=== PATIENT | male | born 1985 | race Two or more races ===

== ENCOUNTER 2017-01-11 15:22 | Emergency (ER) | payer OTHER ==
[2017-01-11] MEDS ORDERED: LACTATED RINGERS 1,000 ML ONE ×2 (16:00→17:26)
[2017-01-11 16:31] LABS: VENOUS BLOOD GAS BASE EXCESS 6.9 mmol/L (-2.0-2.0); VENOUS BLOOD GAS HCO3 34.5 mmol/L (22.0-27.0)
[2017-01-11 16:36] LABS: ABSOLUTE NEUTROPHIL COUNT 5.7 K/mm3 (1.8-7.7); BASO % 0.4 % (0.2-1.0); EOS # 0.1 (0.0-0.5); EOS % 0.8 % (0.9-2.9); HEMATOCRIT 35.9 % (32.0-52.0); HEMOGLOBIN 11.6 gm/l (14.0-18.0); IMM NEUT% 0.3 % (0-1); LYMPH % 13.8 % (15-45); MEAN CELL VOLUME 87.3 fl (80.0-94.0); MEAN CORPUSCULAR HEMOGLOBIN 28.2 pg (27.0-31.0); MEAN CORPUSCULAR HGB CONC 32.3 g/dl (33.0-37.0); MEAN PLATELET VOLUME 11.1 fl (7.4-10.4); MONO # 0.6 (0.0-0.8); MONO % 8.2 % (4-12); NEUT % 76.5 % (43-75); PLATELET COUNT 264 K/mm3 (130-400); RED CELL DISTRIBUTION WIDTH 12.4 % (11.5-14.5)
[2017-01-11 16:52] LABS: ALB/GLOB RATIO 0.8 (>1.0); ALBUMIN 3.2 gm/dL (3.5-5.7); CALCIUM 9.2 mg/dL (8.6-10.3); MAGNESIUM 1.8 mg/dL (1.9-2.7)
--- NOTE | 2017-01-11 16:53 | RAD ---
Name: SAMMI GRIFFITHS Exam: Two-view chest Comparison: None Clinical history: Nausea and vomiting. Findings: 2 views of the chest are submitted. The heart mediastinum and hilar structures are within normal limits. There is no failure, infiltrate, pleural effusion or pneumothorax. Regional skeleton is within normal limits. Impression: No acute cardiopulmonary process
[2017-01-11 18:30] LABS: SPECIFIC GRAVITY 1.015 (1.001-1.030); URINE BILIRUBIN NEGATIVE (NEGATIVE); URINE BLOOD TRACE (NEGATIVE); URINE GLUCOSE (UA) 3+ (NEGATIVE); URINE LEUKOCYTE ESTERASE 2+ (NEGATIVE); URINE NITRITE NEGATIVE (NEGATIVE); URINE PROTEIN NEGATIVE (NEGATIVE); URINE UROBILINOGEN NORMAL (0-1 mg/dl)
[2017-01-11 18:34] LABS: URINE APPEARANCE CLEAR; URINE COLOR YELLOW
[2017-01-11 18:37] LABS: URINE BACTERIA 2+; URINE EPITHELIAL CELLS 0-1 /hpf; URINE RBC 0-1 /hpf; URINE WBC 40-50 /hpf
[2017-01-11 18:43] LABS: AMPHETAMINES/METHAMPHETAMINES NEGATIVE (NEGATIVE); COCAINE NEGATIVE (NEGATIVE); MARIJUANA NEGATIVE (NEGATIVE); METHADONE NEGATIVE (NEGATIVE); OPIATES NEGATIVE (NEGATIVE); TRICYCLIC ANTIDEPRESSANTS NEGATIVE (NEGATIVE)
[2017-01-11] MEDS ORDERED: CEPHALEXIN 500 MG CAPSULE ONE (19:15)
[2017-01-13 12:41] LABS: CHLAMYDIA BD Negative (Negative); N.GONORRHOEAE BD Negative (Negative); SOURCE Urine (())
== END 2017-01-11 19:41 | disposition home or self-care (01) ==
LOC: ED 15:22
DX: E11.65 Type 2 diabetes mellitus with hyperglycemia (principal); N39.0 Urinary tract infection, site not specified; Z79.4 Long term (current) use of insulin
CPT/HCPCS: 83690; 87491; 87591; 82803; 85025; 87086; 80305; 80053; 83735; 81001; 71020; 99284 ×2; 96360; 96361 ×2; 82962; 93005; A9270; J7120 ×2

== ENCOUNTER 2017-01-24 14:57 | Inpatient (IN) | payer OTHER ==
[2017-01-24] MEDS ORDERED: IOPAMIDOL 370 (76%) 100 ML VIAL IV ONE (14:58)
[2017-01-24] MEDS ORDERED: SODIUM CHLORIDE 0.9% 2,000 ML ONE (16:58)
[2017-01-24] MEDS ORDERED: INSULIN REGULAR HUMAN (DOSE) 100 UNITS/1 ML ONE (16:58)
[2017-01-24] MEDS ORDERED: INSULIN REGULAR HUMAN (DOSE) 100 UNITS in SODIUM CHLORIDE 0.9% 99 ML IV PRN (16:59)
[2017-01-24 17:20] LABS: VENOUS BLOOD GAS BASE EXCESS 1.6 mmol/L (-2.0-2.0); VENOUS BLOOD GAS HCO3 28.5 mmol/L (22.0-27.0)
[2017-01-24 17:47] LABS: URINE BILIRUBIN NEGATIVE (NEGATIVE); URINE BLOOD 2+ (NEGATIVE); URINE GLUCOSE (UA) 3+ (NEGATIVE); URINE LEUKOCYTE ESTERASE 2+ (NEGATIVE); URINE NITRITE NEGATIVE (NEGATIVE); URINE PROTEIN TRACE (NEGATIVE); URINE UROBILINOGEN NORMAL (0-1 mg/dl)
[2017-01-24 17:48] LABS: ABSOLUTE NEUTROPHIL COUNT 7.4 K/mm3 (1.8-7.7); BASO % 0.2 % (0.2-1.0); EOS # 0.1 (0.0-0.5); EOS % 0.6 % (0.9-2.9); HEMATOCRIT 36.4 % (32.0-52.0); HEMOGLOBIN 11.9 gm/l (14.0-18.0); IMM NEUT% 0.2 % (0-1); LYMPH # 1.3 (1.0-4.8); LYMPH % 13.9 % (15-45); MEAN CELL VOLUME 86.9 fl (80.0-94.0); MEAN CORPUSCULAR HEMOGLOBIN 28.4 pg (27.0-31.0); MEAN CORPUSCULAR HGB CONC 32.7 g/dl (33.0-37.0); MEAN PLATELET VOLUME 11.3 fl (7.4-10.4); MONO # 0.7 (0.0-0.8); MONO % 7.2 % (4-12); NEUT % 77.9 % (43-75); PLATELET COUNT 288 K/mm3 (130-400); RED CELL DISTRIBUTION WIDTH 12.3 % (11.5-14.5)
[2017-01-24 17:51] LABS: URINE APPEARANCE TURBID; URINE COLOR YELLOW
[2017-01-24 17:59] LABS: ALB/GLOB RATIO 0.7 (>1.0); ALBUMIN 3.1 gm/dL (3.5-5.7); CALCIUM 8.9 mg/dL (8.6-10.3)
[2017-01-24 18:12] LABS: URINE RBC 0-2 /hpf
[2017-01-24 18:13] LABS: URINE BACTERIA RARE; URINE EPITHELIAL CELLS 0-2 /hpf; URINE OTHER 1+ YEAST; URINE WBC >100 /hpf
[2017-01-24] MEDS ORDERED: CEFTRIAXONE 1 GRAM DUPLEX 50 ML IV ONE (18:26)
[2017-01-24] MEDS ORDERED: SODIUM CHLORIDE 0.9% 1,000 ML ONE (19:32)
--- NOTE | 2017-01-24 22:05 | RAD ---
CHEST - 2 VIEWS COMPARISON: Chest 2 views, 01/11/2017 HISTORY: Abdominal pain and nausea for one week. FINDINGS: Views: Frontal and lateral chest Lungs: Normal Heart and vessels: Normal Trachea and bronchi: Normal Mediastinum and ez: Normal Costophrenic sulci: Normal Chest wall and bones: Normal. Upper abdomen: Normal. IMPRESSION: Negative 2 view chest.
--- NOTE | 2017-01-24 22:06 | CT ---
ABD/PELVIS W/ CON COMPARISON: Abdomen one view, 02/26/2016. CT abdomen pelvis with contrast, 02/23/2016. HISTORY: Right lower quadrant pain. Technique: No oral contrast. Intravenous injection 100 mL Isovue 370. Using a [employer] Aquilion [address] scanner, images were obtained from the diaphragm to the floor the pelvis. An automated dose reduction technique was used to minimize patient radiation dose. Dose information: CTDIvol (mGy): 6.00 DLP(mGycm): 324.00 FINDINGS: Lung bases: Normal. Inferior mediastinum and heart: Normal. Liver: Normal. Gallbladder:Normal. Bile ducts: Normal. Pancreas: Normal. Spleen: Normal. Adrenal glands: Normal. Kidneys: Marked bilateral hydronephrosis. Ureters: Marked bilateral hydroureter. Urinary bladder: Markedly distended. Diffuse wall thickening. No calcification Prostate gland and seminal vesicles: Normal. Blood vessels: Normal Lymph nodes: Normal Stomach: Normal Duodenum: Normal Small intestine: Normal Appendix: Normal Colon: Normal Abdominal wall and supporting musculature: Normal Bones: Normal IMPRESSION: Bladder outlet obstruction. Markedly dilated bladder, ureters, and renal collecting systems causing marked hydronephrosis bilaterally. The results were discussed with Paul Thomas M.D. 01/24/2017 at 19:27
[2017-01-24] MEDS ORDERED: BISACODYL 5 MG TABLET.EC PO PRN (22:33)
[2017-01-24] MEDS ORDERED: BISACODYL 10 MG SUP PR PRN (22:33)
[2017-01-24] MEDS ORDERED: MAGNESIUM HYDROXIDE 30 ML UDCUP PO PRN (22:33)
[2017-01-24] MEDS ORDERED: SODIUM CHLORIDE 0.9% 100 ML IV PRN (22:33)
[2017-01-24] MEDS ORDERED: ACETAMINOPHEN 325 MG TABLET PO PRN (22:33)
[2017-01-24] MEDS ORDERED: BLISTEX LIPSTICK 1 EACH TP PRN (22:33)
[2017-01-24] MEDS ORDERED: MENTHOL/CETYLPYRD 1 EACH LOZENGE PO PRN (22:33)
[2017-01-24 23:33] VITALS: BMI 20.5
[2017-01-25] MEDS ORDERED: PUMP TUBING ONE (00:16)
[2017-01-25] MEDS: SODIUM CHLORIDE 0.9% 1,000 ML IV SCH ×3 (00:28→16:11)
[2017-01-25] MEDS: ENOXAPARIN SODIUM 40 MG/0.4 ML SYRINGE SUB-Q SCH ×2 (00:29→21:01)
[2017-01-25] MEDS: INSULIN ASPART (DOSE) 100 UNITS/1 ML SUB-Q PRN ×2 (00:30→08:24)
[2017-01-25] MEDS: CLOTRIMAZOLE 1% 15 APPLIC/15 G CREAM TP SCH ×3 (00:34→21:01)
[2017-01-25] MEDS: INSULIN GLARGINE (DOSE) 100 UNITS/ML UNIT SUB-Q SCH ×2 (00:37→20:58)
[2017-01-25 05:27] LABS: BASO % 0.3 % (0.2-1.0); EOS # 0.1 (0.0-0.5); EOS % 1.5 % (0.9-2.9); HEMATOCRIT 28.6 % (32.0-52.0); HEMOGLOBIN 9.4 gm/l (14.0-18.0); IMM NEUT # 0.1 K/mm3 (0-0.2); IMM NEUT% 0.8 % (0-1); LYMPH # 1.5 (1.0-4.8); LYMPH % 23.9 % (15-45); MEAN CELL VOLUME 86.1 fl (80.0-94.0); MEAN CORPUSCULAR HEMOGLOBIN 28.3 pg (27.0-31.0); MEAN CORPUSCULAR HGB CONC 32.9 g/dl (33.0-37.0); MONO # 0.5 (0.0-0.8); MONO % 8.1 % (4-12); NEUT % 65.4 % (43-75); PLATELET COUNT 249 K/mm3 (130-400); RED CELL DISTRIBUTION WIDTH 12.5 % (11.5-14.5)
[2017-01-25] MEDS: INSULIN REGULAR HUMAN (DOSE) 100 UNITS/1 ML SUB-Q SCH ×3 (08:24→18:05)
[2017-01-25] MEDS: DOCUSATE SODIUM 100 MG CAPSULE PO SCH ×2 (08:25→21:01)
[2017-01-25] MEDS: FAMOTIDINE 20 MG TABLET PO SCH ×2 (08:25→21:01)
--- NOTE | 2017-01-25 08:25 | HP ---
SAMMI MURRAY [id number] DATE OF ADMISSION: January 24, 2017 CHIEF COMPLAINT: Lower abdominal pain. HISTORY OF PRESENT ILLNESS: The patient is a 31-year-old male with adult onset diabetes treated with insulin who has been having problems with lower abdominal pain associated with nausea and elevated blood sugars in the past several weeks as well. Patient was last seen in the emergency department on January 11, 2017 and was treated for a urinary tract infection at that time. He was also hyperglycemic at that visit with a blood sugar of 575. The patient has a history of a neurogenic bladder and has been out of his catheters for self catheterization for several months now. In the emergency department, he was found to have evidence of severe urinary retention with bilateral hydronephrosis and acute kidney injury prompting admission to the hospital. REVIEW OF SYSTEMS: Is negative for any fevers or chills. He has had no upper respiratory symptoms. He denies cough, dyspnea, wheezing, chest pain, shortness of breath, or palpitations. He has had nausea off and on for the last several weeks and occasional emesis. He denies any diarrhea of constipation. He has had the lower abdominal pain as I mentioned. He denies any arthralgias. He has had no headaches, fainting, blackouts or seizures. His review of systems is otherwise negative. PAST MEDICAL HISTORY: Is significant for: 1. Adult onset type diabetes treated with insulin, possibly type 1.5 diabetes, with complications of retinopathy, nephropathy and neuropathy including a neurogenic bladder. He has had diabetes since the age of 18 and a history of poor control. 2. He has had a history of a diabetic foot ulcer with cellulitis back in 2013 and a right thigh abscess that was also treated and required hospitalization in 2013 as well. 3. He has had a history of dyslipidemia and denies any other chronic medical problems. 4. He had a full cardiac evaluation by [facility] in January of 2016. He had an abnormal Myoview study. It is unclear what the cardiac catheterization showed. His ejection fraction was 55 to 60% on echocardiography. PAST SURGICAL HISTORY: Significant for: 1. Retinal detachment surgery. He had the right eye done in September,, and the left eye done in January of 2016. 2. He had a cardiac catheterization in January of 2016. The results are not available. 3. He had a cystoscopy in June of [address] Ortiz. 4. He has had incision and drainage of an abscess of his right thigh in 2013. ALLERGIES: NO KNOWN DRUG ALLERGIES. CURRENT MEDICATIONS: 1. He was recently prescribed Keflex 500 mg twice daily on January 13, 2017. 2. He takes metformin 1000 mg twice a day. 3. Lasix 40 mg every morning. 4. Potassium chloride 10 mEq daily. 5. Lovastatin 20 mg at bedtime. 6. Ranitidine 150 mg twice daily. 7. Regular insulin 10 units subcutaneous before meals. 8. Lantus insulin 45 units daily. Sometimes he will take more and sometimes he will take less depending on how his blood sugars are doing. FAMILY HISTORY: Significant for both parents with diabetes. SOCIAL HISTORY: He is disabled. He lives with his parents. There is no history of alcohol or tobacco use. He is [employer]. His primary care provider is Dr. Plaza. There is no history of illicit drug use. PHYSICAL EXAMINATION: VITAL SIGNS: Temperature is 97.4, pulse 85, blood pressure 110/67, respirations 18, oxygen saturation 99% on room air. While in the emergency department, the patient's blood pressures fluctuated quite a bit with some systolic blood pressures below 95 despite IV hydration. GENERAL: This is a thin male in no acute distress. HEENT: Exam shows pupils equal, round, and reactive to light. Extraocular movements are intact. No oral lesions are present. NECK: Is supple without lymphadenopathy or thyromegaly. CHEST: Lungs are clear to auscultation bilaterally. CARDIOVASCULAR: Exam reveals a regular rate and rhythm without a murmur. ABDOMEN: Soft, nontender, nondistended with positive bowel sounds. His abdominal pain resolved after placement of a Lawson catheter. He still does have some palpable bladder enlargement as the catheter has been clamped to reduce the risk of hemorrhage and post obstructive diuresis. EXTREMITIES: Show no peripheral edema. He has a papulosquamous rash on both feet especially between the toes. No ulcerations are identified. Dorsal pedis pulses are 2+ in both feet. DIAGNOSTIC IMAGING STUDIES: Included a CT of the abdomen and pelvis which showed bladder outlet obstruction, markedly dilated bladder, ureters, and renal collecting systems. LABORATORY STUDIES: CBC shows a white count of 9.5, hemoglobin 11.9, platelet count of 288,000. Lactate is 1.7. Chemistry profile shows a sodium 128, potassium 4.7, carbon dioxide 27, BUN 27, creatinine 1.5, glucose 621. Urine shows over 100 white cells per high power field, rare bacteria, 1+ yeast, nitrite is negative. ASSESSMENT: 1. Patient has acute urinary retention associated with acute kidney injury caused by neurogenic bladder secondary to complications of diabetes. 2. He has adult onset diabetes but is behaving more like an insulin dependent diabetic complicated by neuropathy, retinopathy and nephropathy. 3. He has longstanding uncontrolled diabetes. He was initially treated with an insulin drip in the emergency department but now is transitioned over to subcutaneous insulin. 4. He is out of test strips. He is out of urinary catheters. 5. He has a possible urinary tract infection. PLAN: 1. He was admitted initially to the intermediate care unit due to blood pressure instability in the emergency department. I think the most likely reason for the blood pressure instability is underlying neuropathy. 2. He will be treated with Rocephin and hydration. 3. He has had a Lawson catheter placed and we are going to clamp the catheter after every liter of urine is drained and monitor his input and output closely with IV fluid replacement to replace any ongoing losses. 4. His venous thromboembolic risk is moderate and Lovenox in renally adjusted dose has been prescribed. 5. For his diabetes, he will use subcutaneous insulin following a moderate sliding scale. Cc: Romero Plaza M.D.
[2017-01-25] MEDS ORDERED: FLU VACC 2016-17 (36MO-64Y)/PF 60 MCG/0.5 ML SYRINGE IM V ONE (09:00)
--- NOTE | 2017-01-25 10:20 | PDOC43 ---
- Subjective Chief Complaint: lower abd pain Subjective: Reports Abdominal Pain (resolved after placement of catheter), Denies Vomiting, Denies Fever - Objective Vital Signs Temperature 98.1 F 01/25/17 07:10 Pulse Rate 83 01/25/17 07:10 Respiratory Rate 12 01/25/17 07:10 Blood Pressure 128/83 01/25/17 07:10 O2 Saturation by Pulse Oximetry 99 01/25/17 07:10 Oxygen Delivery Method Room Air Oxygen Flow Rate 0 Intake and Output 01/24/17 01/25/17 01/26/17 06:59 06:59 06:59 Intake Total 3919 Output Total 2600 Balance 1319 General: Alert, Oriented x3, Cooperative, No Acute Distress HEENT: Mucous membr. moist/pink Lungs: Clear to Auscultation Bilaterally Cardiovascular: Regular Rate and Rhythm Abdomen: Soft, Normal Bowel Sounds, Non-Distended, No Tenderness Extremities: No Edema Skin: Warm, Dry, Intact Laboratory 01/25/17 05:22 01/25/17 05:22 01/25/17 05:22 RBC 3.32 L MCHC 32.9 L Calcium 8.0 L Current Medications: Current meds reviewed in EMR. - Problems: Assessment/Plan (1) Urinary retention Status: ChronicAssessment/Plan: causing acute kidney injury, due to longstanding neurogenic bladder(due to diabetic neuropathy)-needs to resume straight catheterizing on discharge, leave Lawson in another 24hrs to monitor and treat postobstructive diuresis (2) Diabetes type 2, uncontrolled Qualifiers: Diabetes mellitus complication status: with hyperglycemia Diabetes mellitus senior care insulin use: with senior care use Qualifier Code: (E11.65) Type 2 diabetes mellitus with hyperglycemia Status: ChronicAssessment/Plan: long H/O poor control, recently referred to [facility], complicated by neuropathy, nephropathy, and retinopathy-adjust insulin dosing (3) UTI (urinary tract infection), bacterial Status: AcuteAssessment/Plan: presumed, on rocephin, await Cx results VTE Prophylaxis: Lovenox Disposition: probable discharge in am
[2017-01-25] MEDS ORDERED: CEFTRIAXONE 1 GRAM DUPLEX 1 G in Premix (D5W) 50 ml 1 EACH IV SCH (18:00)
[2017-01-25] MEDS ORDERED: LOVASTATIN 20 MG TABLET PO SCH (20:00)
[2017-01-26] MEDS: SODIUM CHLORIDE 0.9% 1,000 ML IV SCH ×2 (00:37→08:24)
[2017-01-26 05:54] LABS: CALCIUM 7.8 mg/dL (8.6-10.3)
[2017-01-26] MEDS ORDERED: POTASSIUM CHLORIDE 10 MEQ TAB.SR PO ONE (06:51)
[2017-01-26 07:22] VITALS: BP 133/96
[2017-01-26] MEDS: INSULIN ASPART (DOSE) 100 UNITS/1 ML SUB-Q PRN ×2 (08:06→12:24)
[2017-01-26] MEDS: INSULIN REGULAR HUMAN (DOSE) 100 UNITS/1 ML SUB-Q SCH ×2 (08:07→12:23)
[2017-01-26] MEDS: FAMOTIDINE 20 MG TABLET PO SCH (08:08)
[2017-01-26] MEDS: CLOTRIMAZOLE 1% 15 APPLIC/15 G CREAM TP SCH (08:08)
[2017-01-26] MEDS: DOCUSATE SODIUM 100 MG CAPSULE PO SCH (08:08)
--- NOTE | 2017-01-26 10:33 | PDOC43 ---
- Subjective Chief Complaint: lower abd pain Subjective: Reports Tolerating Diet Well, Reports Abdominal Pain (resolved with Quijano), Denies Nausea, Denies Fever - Objective Vital Signs Temperature 97.6 F 01/26/17 07:21 Pulse Rate 90 01/26/17 07:21 Respiratory Rate 13 01/26/17 07:46 Blood Pressure 133/96 01/26/17 07:21 O2 Saturation by Pulse Oximetry 100 01/26/17 07:21 Oxygen Delivery Method Room Air Oxygen Flow Rate 0 Intake and Output 01/25/17 01/26/17 01/27/17 06:59 06:59 06:59 Intake Total 3919 3689 Output Total 2600 4300 Balance 1319 -611 General: Alert, Oriented x3, Cooperative, No Acute Distress HEENT: Mucous membr. moist/pink Lungs: Clear to Auscultation Bilaterally Cardiovascular: Regular Rate and Rhythm Abdomen: Soft, Normal Bowel Sounds, Non-Distended, No Tenderness Extremities: No Edema Peripheral Pulses: Dorsalis Pedis (L): 2+, Dorsalis Pedis (R): 2+ Skin: Warm, Dry, Intact Laboratory 01/25/17 05:22 01/26/17 05:20 01/26/17 05:20 Estimated GFR 111 H Calcium 7.8 L Current Medications: Current meds reviewed in EMR. - Problems: Assessment/Plan (1) Urinary retention Status: ChronicAssessment/Plan: causing acute kidney injury, due to longstanding neurogenic bladder(due to diabetic neuropathy)-needs to resume straight catheterizing today with teaching , remove quijano- unable to get supplies today (2) Diabetes type 2, uncontrolled Qualifiers: Diabetes mellitus complication status: with hyperglycemia Diabetes mellitus superintendent terminal insulin use: with superintendent terminal use Qualifier Code: (E11.65) Type 2 diabetes mellitus with hyperglycemia Status: ChronicAssessment/Plan: long H/O poor control, recently referred to [facility], complicated by neuropathy, nephropathy, and retinopathy, glucose control has been good on usual insulin dosing - [facility] (3) UTI (urinary tract infection), bacterial Status: AcuteAssessment/Plan: presumed, on rocephin, await Cx results VTE Prophylaxis: Lovenox Disposition: discharge in am, will need supplies
--- NOTE | 2017-01-26 16:51 | DS ---
SAMMI MURRAY [id number] DATE OF ADMISSION: 01/24/2017 DATE OF DISCHARGE: 01/26/2017 DISCHARGE DIAGNOSIS: Lower abdominal pain secondary to chronic urinary retention secondary to neurogenic bladder secondary to diabetic neuropathy. OTHER DIAGNOSES: Include: 1. Uncontrolled adult-onset diabetes with hyperglycemia. 2. Chronic dyslipidemia. 3. Diabetic retinopathy. 4. Acute kidney injury secondary to bladder outlet obstruction. 5. Tinea pedis. SUMMARY OF ADMISSION AND HOSPITAL COURSE: The patient is a 31-year-old male who diabetes complicated by retinopathy, neuropathy, and nephropathy who has a long-standing history of a neurogenic bladder. He had urologic workup over a year ago, and he was prescribed self-catheterization. He ran out of his urinary catheters over a month ago, and stopped catheterizing himself. He presented with complaints of lower abdominal pain. He was found to have acute urinary retention. He also was found to have marked hyperglycemia. He had a catheter placed in the emergency department, but was referred to the Hospitalist service for monitoring of his urine output due to concerns about possible post obstructive diuresis, and also because of uncontrolled diabetes. He was initially treated with an insulin drip. His blood sugars improved and he was transitioned over to Lantus and regular insulin. He had imaging studies including a CT of the abdomen and pelvis without contrast showing hydronephrosis, and bladder outlet obstruction. He was treated with saline. He initially had cramping level of 1.5 and this improved to 0.8 with hydration. Anion gap and CO2 levels were normal on admission. He had a mild post obstructive diuresis and replacement of this with IV fluids. By 01/26/2017, he was felt to be medically stable for discharge. Urine cultures are negative. He had instruction and education regarding self-catheterization and was able to demonstrate proficiency prior to discharge. He had a flu vaccination on 01/25/2017. During his stay, he had excellent glycemic control on his current insulin regimen. Unclear how compliant he is with this at home. PHYSICAL EXAM: VITAL SIGNS: On the day of discharge, his vital signs showed a temperature of 97.6, pulse 90, blood pressure 133/96, respirations 13, oxygen saturation is 100% on room air. Body mass index is 20.3. Weight is 60.7 kg. GENERAL: This is a well-developed, well-nourished male in no acute distress. HEENT: Unremarkable. LUNGS: Clear to auscultation bilaterally. CARDIOVASCULAR: Exam reveals a regular rate and rhythm without a murmur. ABDOMEN: Soft, nontender, nondistended with positive bowel sounds. EXTREMITIES: Show no peripheral edema. DISCHARGE LABORATORY STUDIES: Metabolic panel showed a sodium of 139, potassium 3.4, BUN 13, creatinine 0.8, and glucose 218. CBC showed a white count of 6.1, hemoglobin of 9.4, and a platelet count of 249,000. DISPOSITION: Home. INSTRUCTIONS: I gave the patient a discharge supply of urinary catheters one time use and we made referrals to care management in the clinic to help assist him in getting these after discharge along with diabetic supplies as needed. ALLERGIES: NO KNOWN DRUG ALLERGIES. DISCHARGE MEDICATIONS: I discontinued his potassium and his Lasix as I do not see any indications for this detention. I did prescribe: 1. Lotrimin cream to apply to his feet twice daily for 2 weeks, or longer. 2. He will finish Keflex 500 mg twice daily as previously prescribed for a urinary tract infection. 3. He will resume Lantus 45 units subcutaneous at bedtime. 4. Glucophage 1000 mg by mouth twice a day. 5. Regular insulin 10 units subcutaneous before meals. 6. Mevacor 20 mg at bedtime. 7. Ranitidine 150 mg twice daily. DISCHARGE CONDITION: Good. DIET: Diabetic diet. YNES/gorge Cc: Romero Plaza MD
== END 2017-01-26 13:10 | disposition home or self-care (01) | DRG 699 ==
LOC: ED 14:57 → ICU 22:26
PROVIDERS: ADMIT Family Medicine; ATTEND Family Medicine
DX: N32.0 Bladder-neck obstruction (principal); N17.9 Acute kidney failure, unspecified; R33.9 Retention of urine, unspecified; N31.9 Neuromuscular dysfunction of bladder, unspecified; E11.40 Type 2 diabetes mellitus with diabetic neuropathy, unspecified; E11.319 Type 2 diabetes mellitus with unspecified diabetic retinopathy without macular edema; B35.3 Tinea pedis; Z79.84 Long term (current) use of oral hypoglycemic drugs; Z79.4 Long term (current) use of insulin

== ENCOUNTER 2017-02-25 11:04 | Inpatient (IN) | payer OTHER ==
[2017-02-25] MEDS ORDERED: LACTATED RINGERS 1,000 ML ONE (11:25)
[2017-02-25 11:58] LABS: ABSOLUTE NEUTROPHIL COUNT 13.7 K/mm3 (1.8-7.7); BASO % 0.1 % (0.2-1.0); HEMATOCRIT 34.7 % (32.0-52.0); HEMOGLOBIN 10.2 gm/l (14.0-18.0); IMM NEUT # 0.1 K/mm3 (0-0.2); IMM NEUT% 0.5 % (0-1); LYMPH # 0.5 (1.0-4.8); LYMPH % 3.1 % (15-45); MEAN CELL VOLUME 96.1 fl (80.0-94.0); MEAN CORPUSCULAR HEMOGLOBIN 28.3 pg (27.0-31.0); MEAN CORPUSCULAR HGB CONC 29.4 g/dl (33.0-37.0); MEAN PLATELET VOLUME 12.8 fl (7.4-10.4); MONO # 0.7 (0.0-0.8); MONO % 4.4 % (4-12); NEUT % 91.9 % (43-75); PLATELET COUNT 301 K/mm3 (130-400); RED CELL DISTRIBUTION WIDTH 16.8 % (11.5-14.5)
[2017-02-25 12:10] LABS: ALB/GLOB RATIO 0.5 (>1.0); ALBUMIN 2.4 gm/dL (3.5-5.7); CALCIUM 8.2 mg/dL (8.6-10.3); TROPONIN I 0.01 ng/ml (0.0-0.06)
[2017-02-25 12:14] LABS: CKMB ISOENZYME 1.6 ng/ml (0.6-6.3)
[2017-02-25 12:20] LABS: THYROID STIMULATING HORMONE 4.44 uIU/ml (0.34-5.60)
[2017-02-25 12:56] LABS: BAND 1 % (0-10); BASOPHIL 0 % (0-1); EOSINOPHIL 0 % (1-3); LYMPHOCYTE 5 % (15-45); MONOCYTE 1 % (4-12); NEUTROPHILS 93 % (43-75); PLATELET ESTIMATE NORMAL (NORMAL); TOTAL CELLS COUNTED 100
[2017-02-25 13:13] LABS: URINE BILIRUBIN NEGATIVE (NEGATIVE); URINE BLOOD 2+ (NEGATIVE); URINE GLUCOSE (UA) 3+ (NEGATIVE); URINE LEUKOCYTE ESTERASE 2+ (NEGATIVE); URINE NITRITE NEGATIVE (NEGATIVE); URINE PROTEIN TRACE (NEGATIVE); URINE UROBILINOGEN NORMAL (0-1 mg/dl)
[2017-02-25 13:18] LABS: URINE APPEARANCE CLOUDY; URINE COLOR YELLOW
[2017-02-25 13:32] LABS: URINE EPITHELIAL CELLS 0 /hpf; URINE RBC 0-1 /hpf
[2017-02-25 13:33] LABS: URINE BACTERIA 4+
[2017-02-25] MEDS ORDERED: CEFTRIAXONE 1 GRAM DUPLEX 50 ML IV ONE (14:15)
[2017-02-25] MEDS ORDERED: SODIUM CHLORIDE 0.9% 1,000 ML ONE ×2 (14:15→15:09)
[2017-02-25] MEDS ORDERED: BLISTEX LIPSTICK 1 EACH TP PRN (14:55)
[2017-02-25] MEDS ORDERED: ENOXAPARIN SODIUM 30 MG/0.3 ML SYRINGE SUB-Q SCH (14:55)
[2017-02-25] MEDS ORDERED: SODIUM CHLORIDE 0.9% 100 ML IV PRN (14:55)
[2017-02-25] MEDS ORDERED: BISACODYL 5 MG TABLET.EC PO PRN (14:55)
[2017-02-25] MEDS ORDERED: INSULIN REGULAR HUMAN (DOSE) 100 UNITS in SODIUM CHLORIDE 0.9% 99 ML IV PRN (14:55)
[2017-02-25] MEDS ORDERED: MENTHOL/CETYLPYRD 1 EACH LOZENGE PO PRN (14:55)
[2017-02-25] MEDS ORDERED: BISACODYL 10 MG SUP PR PRN (14:55)
[2017-02-25] MEDS ORDERED: ACETAMINOPHEN 325 MG TABLET PO PRN (14:55)
[2017-02-25] MEDS ORDERED: MAGNESIUM HYDROXIDE 30 ML UDCUP PO PRN (14:55)
[2017-02-25] MEDS ORDERED: PUMP TUBING ONE ×2 (15:09→15:20)
[2017-02-25] MEDS: SODIUM CHLORIDE 0.9% 1,000 ML IV SCH (15:14)
[2017-02-25] MEDS: PANTOPRAZOLE SODIUM 40 MG VIAL IV SCH (15:15)
[2017-02-25 15:43] VITALS: BMI 18.9
[2017-02-25] MEDS ORDERED: NS/Potassium Chlor 20 mEq 1,000 ML IV SCH (18:15)
--- NOTE | 2017-02-25 19:16 | HP ---
SAMMI MURRAY [id number] DATE OF ADMISSION: February 25, 2017 CHIEF COMPLAINT: High blood sugar. HISTORY OF PRESENT ILLNESS: The patient is a 31-year-old male with adult onset diabetes treated with insulin complicated by noncompliance and nephropathy, neuropathy and retinopathy who presents to the [facility] Emergency Department by ambulance with a one-week history of malaise, hyperglycemia, stomach ache and some nausea and vomiting. The family reports subjective fevers over the past week. He has also complained of back ache and headache and severe weakness. Today he had persistent vomiting and was too weak to get out of bed and so they called the ambulance to bring him in for evaluation. The family reports that his blood sugars at home have been in the range of 400 until today when they were off the glucose scale of the monitor. He has used insulin twice in the past week. In the emergency department, his blood sugar was over 1200. The patient is lethargic and slow to respond. Most of the history was obtained on discussion with the patient's mother and sister as well as review of the medical record. REVIEW OF SYSTEMS: Family reports that he has had severe weakness over the past week and the subjective fevers as I mentioned. He has had no upper respiratory symptoms. He has had a cough off and on for the past week which has been nonproductive without chest pain or shortness of breath. He has had the nausea and vomiting for the last two to three days, just once or twice a day. He has had generalized abdominal pain for the last two to three days. Family reports that he has had some intermittent diarrhea since his discharge last month. It seemed to get better and then resumed. They report that they do not know how many a times a day he has been going. He complains of nausea with eating and that his diarrhea gets worse after he eats. The patient has had a poor appetite. He has lost over 20 pounds in the last year. He complains of headache and backache as I mentioned above. He has had no fainting, blackouts or seizures. There are no reports of any polyuria or polydipsia. He, however, requires catheterization to assess his urine output. He reports that he has been having pain with attempts to catheterize himself and has not been doing that regularly, and generally only catheterizes himself once a week. His mother reports that he told her that he did not get much urine output when he checked himself every day, and that it has been painful to catheterize himself. The patient is really not offering much information. The patient's mother feels like he may be depressed and that this has been going on for about a year now. Review of systems is otherwise negative. PAST MEDICAL HISTORY: Is significant for: 1. Hospitalization a month ago for acute urinary retention and lower abdominal pain due to a neurogenic bladder and noncompliance with self catheterization. He also had severe hyperglycemia during that stay which was controlled with insulin administration. 2. He has had diabetes for about 13 years and a long history of poor control. The diabetes is now complicated by retinopathy, nephropathy and neuropathy. He has been referred to the [facility] but does not appear that he has been seen there. He is not seen by a kidney specialist. He has been to a urologist for his neurogenic bladder and was advised to self catheterize three times a day. 3. He has had a history of diabetic foot ulcer with cellulitis back in 2013 as well as a right thigh abscess which required hospitalization and drainage. 4. He has had a history of dyslipidemia and had a full cardiac evaluation by [facility] in January of 2016. I believe he had a cardiac catheterization, but the records in [facility] are not complete. He did have an echocardiogram showing an ejection fraction of 55 to 60%. PAST SURGICAL HISTORY: Significant for: 1. Retinal surgery in September,, on the right eye and in January of 2016 the left eye for retinal detachment. 2. He had a cardiac catheterization in January,. Results are not available. 3. He had a cystoscopy in June of [address] Ortiz and that is when he was diagnosed with a neurogenic bladder. 4. He has had an incision and drainage of an abscess in the right thigh in 2013. 5. He has a right lower quadrant scar suspicious for an appendectomy. ALLERGIES: NO KNOWN DRUG ALLERGIES. CURRENT MEDICATIONS: His prescribed medications are: 1. Ranitidine 150 mg twice daily. 2. Metformin 1000 mg twice daily. 3. Mevacor 20 mg every evening. 4. Regular insulin 10 units subcutaneous with meals. 5. Lantus insulin 45 units subcutaneous at bedtime. 6. Lotrimin 1% cream topically twice daily to tinea pedis. 7. Potassium chloride 10 mEq daily. 8. Lasix 40 mg daily. That was recently prescribed for edema when he saw his primary care provider on February 05, 2017. FAMILY HISTORY: Significant for both parents with diabetes. I do not believe they are on insulin. SOCIAL HISTORY: He is disabled due to complications of his diabetes. He lives with his parents. He has a young brother and a sister. There is no history of alcohol, tobacco or illicit drug use. He is [employer]. His primary care provider is Dr. Plaza. PHYSICAL EXAMINATION: VITAL SIGNS: Body mass index is 18.9 with a weight of 61.6 kilograms. Temperature is 97.8, pulse 76, blood pressure 98/49, respirations 10, oxygen saturation 96% on room air. GENERAL: This is a cachectic and malnourished appearing male in no acute distress. HEENT: Shows poor dentition, slightly dry oral mucosa. NECK: Is supple without lymphadenopathy or thyromegaly. CHEST: Lungs are clear to auscultation bilaterally. CARDIOVASCULAR: Exam reveals a regular rate and rhythm without a murmur. ABDOMEN: Soft, nontender, nondistended with hypoactive bowel sounds. GENITOURINARY: Shows balanitis with some serous drainage from the skin at the tip of the penis and inflammation at the foreskin area. EXTREMITIES: Show no peripheral edema. Capillary refill is about three seconds. He does have a papulosquamous rash between the toes on both feet. No other skin breakdown is seen. SKIN: Warm and dry. DIAGNOSTIC IMAGING STUDIES: No imaging studies were performed. LABORATORY STUDIES: Included a CBC with a white count elevated at 14.9, hemoglobin is 10.2, platelet count is 301,000. Differential shows 93% neutrophils, 1% bands, 5% lymphocytes. Lactate was 1.4. Chemistry profile showed a sodium of 147, potassium 4.6, chloride of 95, carbon dioxide 22, BUN 86, creatinine 2.3, glucose 1209, bilirubin 0.2, AST 9, ALT 11, ammonia 44. Cardiac enzymes were negative. Albumin is 2.4, globulin is 4.6. Lipase is 37. TSH is normal at 4.4. His urine shows trace protein, 3+ glucose, 1+ ketones, nitrite negative, leukocyte esterase 2+, 4 to 8 white cells, 0 to 1 red cells, 4+ bacteria. Culture is pending. Patient received a dose of Rocephin in the emergency department. ASSESSMENT AND PLAN: 1. Patient has diabetic hyperosmolar nonketotic state with uncontrolled diabetes complicated by neuropathy, nephropathy and retinopathy. 2. He has evidence of acute kidney injury likely due to dehydration possibly exacerbated by bladder outlet obstruction from noncompliance due to his neurogenic bladder. 3. He has nausea, vomiting and lower abdominal pain. Suspect this is secondary to the hyperosmolar state. He did have a CT of his abdomen and pelvis less than a month ago showing no acute findings except for the urinary retention. 4. He has a neurogenic bladder and is noncompliant with catheterization. He may need a mcc catheter or suprapubic catheter if his noncompliance continues. 5. He has evidence of major depression which may be interfering with his ability to care for himself. I am going to recommend an antidepressant therapy once his electrolyte abnormalities improve. Probably we will start him on Prozac 20 mg daily. 6. He has a history of noncompliance which complicates his care and may benefit from Home Health services and aggressive care management from the outpatient department. 7. He has had some recent edema. The cause is unclear. He had a normal ejection fraction on echocardiography last year. I suspect the hypoalbuminemia is driving this, and this may be secondary to malnutrition versus nephrotic syndrome. Consider protein/creatinine ratio of the urine once his hyperglycemia is controlled. Cc: Romero Plaza M.D.
[2017-02-25 19:18] LABS: CALCIUM 7.7 mg/dL (8.6-10.3)
[2017-02-25 19:32] LABS: MAGNESIUM 2.7 mg/dL (1.9-2.7)
[2017-02-25] MEDS: INSULIN REGULAR HUMAN (DOSE) 100 UNITS in SODIUM CHLORIDE 0.9% 99 ML IV PRN ×2 (19:55→21:50)
[2017-02-25] MEDS ORDERED: INSULIN REGULAR HUMAN (DOSE) 100 UNITS/1 ML IV ONE (20:09)
[2017-02-25] MEDS: POTASSIUM CHLORIDE 40 MEQ in SODIUM CHLORIDE 0.45% 1,000 ML IV SCH (20:32)
[2017-02-25] MEDS: DOCUSATE SODIUM 100 MG CAPSULE PO SCH (21:27)
[2017-02-25] MEDS: CLOTRIMAZOLE 1% 15 APPLIC/15 G CREAM TP SCH (23:32)
[2017-02-25] MEDS: ONDANSETRON 4 MG/2ML 2 ML VIAL IV PRN (23:55)
[2017-02-26 00:31] LABS: CALCIUM 7.8 mg/dL (8.6-10.3)
[2017-02-26] MEDS: POTASSIUM CHLORIDE 40 MEQ in SODIUM CHLORIDE 0.45% 1,000 ML IV SCH (00:43)
[2017-02-26] MEDS ORDERED: POTASSIUM CHLORIDE 40 MEQ in SODIUM CHLORIDE 0.45% 1,000 ML IV SCH (01:07)
[2017-02-26] MEDS ORDERED: POTASSIUM CHLORIDE 20 MEQ in D5W 1,000 ML IV SCH (01:15)
[2017-02-26] MEDS ORDERED: PUMP TUBING ONE ×2 (01:56→10:45)
[2017-02-26] MEDS ORDERED: D5W 1,000 ML IV SCH ×3 (02:00→16:15)
[2017-02-26] MEDS ORDERED: IV START KIT ONE ×2 (02:19→21:27)
[2017-02-26] MEDS ORDERED: SODIUM CHLORIDE 0.9% FLUSH 10 ML ONE (02:19)
[2017-02-26] MEDS: SODIUM CHLORIDE 0.9% 1,000 ML IV SCH ×3 (02:57→11:44)
[2017-02-26 05:51] LABS: ABSOLUTE NEUTROPHIL COUNT 13.2 K/mm3 (1.8-7.7); BASO % 0.1 % (0.2-1.0); EOS # 0.1 (0.0-0.5); EOS % 0.5 % (0.9-2.9); HEMOGLOBIN 8.2 gm/l (14.0-18.0); IMM NEUT # 0.1 K/mm3 (0-0.2); IMM NEUT% 0.5 % (0-1); LYMPH # 0.7 (1.0-4.8); LYMPH % 4.6 % (15-45); MEAN CELL VOLUME 88.1 fl (80.0-94.0); MEAN CORPUSCULAR HEMOGLOBIN 27.8 pg (27.0-31.0); MEAN CORPUSCULAR HGB CONC 31.5 g/dl (33.0-37.0); MEAN PLATELET VOLUME 12.7 fl (7.4-10.4); MONO # 0.9 (0.0-0.8); MONO % 5.8 % (4-12); NEUT % 88.5 % (43-75); PLATELET COUNT 238 K/mm3 (130-400); RED CELL DISTRIBUTION WIDTH 15.6 % (11.5-14.5)
[2017-02-26] MEDS: INSULIN REGULAR HUMAN (DOSE) 100 UNITS in SODIUM CHLORIDE 0.9% 99 ML IV PRN (06:07)
[2017-02-26 06:57] LABS: MAGNESIUM 2.4 mg/dL (1.9-2.7)
[2017-02-26 07:24] LABS: BAND 2 % (0-10); BASOPHIL 0 % (0-1); EOSINOPHIL 0 % (1-3); LYMPHOCYTE 11 % (15-45); MONOCYTE 2 % (4-12); NEUTROPHILS 85 % (43-75); PLATELET ESTIMATE NORMAL (NORMAL); TOTAL CELLS COUNTED 100
[2017-02-26] MEDS: DOCUSATE SODIUM 100 MG CAPSULE PO SCH ×2 (08:07→21:11)
[2017-02-26] MEDS: CLOTRIMAZOLE 1% 15 APPLIC/15 G CREAM TP SCH ×2 (10:05→21:17)
--- NOTE | 2017-02-26 10:54 | PDOC43 ---
- Subjective Chief Complaint: Hyperosmolar state Patient reported to be doing better. Positive blood culture for GNR just now. Pt denies respiratory c/o, breathing ok. No abdominal c/o. Did have a little breakfast, but jello is untouched, some coffee was consumed. No leg c/o. - Objective Vital Signs Temperature 99.1 F 02/26/17 07:12 Pulse Rate 86 02/26/17 07:12 Respiratory Rate 10 02/26/17 07:12 Blood Pressure 99/61 02/26/17 07:12 O2 Saturation by Pulse Oximetry 95 02/26/17 07:33 Oxygen Delivery Method Nasal Cannula Oxygen Flow Rate 1 Vital Signs Last 12 Hours Temp Pulse Resp BP Pulse Ox 02/26/17 07:33 95 02/26/17 07:32 95 02/26/17 07:12 99.1 F 86 10 99/61 94 02/26/17 03:09 99.4 F 84 16 81/44 97 02/26/17 01:53 77 16 76/41 100 02/26/17 00:05 77 14 79/46 100 02/25/17 23:21 99 F 79 16 81/42 100 Intake and Output 02/24/17 02/25/17 02/26/17 23:59 23:59 23:59 Intake Total 3113 3422.6 Output Total 2801 900 Balance 312 2522.6 General: No Alert (Patient sl sleepy, but answers slowly, generally appropirately.) Lungs: Clear to Auscultation Bilaterally, Normal Air Movement Cardiovascular: Regular Rate and Rhythm Abdomen: Soft, Normal Bowel Sounds, Non-Distended Genitourinary: Other (Cath in, RN reports severe balanitis.) Extremities: Other (onychomycosis, no ulceration or cellulitis of extremities.) , No Edema Skin: Other (suggests dehydration) Neurological: Normal Speech (sl slow answer, thai and korean), Other (slow, but answers appropriately) Psych/Mental Status: Flat Affect, No Normal Affect Laboratory 02/26/17 05:15 02/26/17 05:15 02/26/17 02/26/17 02/26/17 09:04 08:04 07:07 RBC MCHC RDW Anion Gap BUN Estimated GFR POC Capillary Glucose 234 H 220 H 200 H Calcium Phosphorus 02/26/17 02/26/17 02/26/17 06:03 05:15 05:03 RBC 2.95 L MCHC 31.5 L RDW 15.6 H Anion Gap BUN 67 H Estimated GFR 41 L POC Capillary Glucose 215 H 263 H Calcium 8.0 L Phosphorus 1.6 L 02/26/17 02/26/17 02/26/17 03:55 03:01 02:01 RBC MCHC RDW Anion Gap BUN Estimated GFR POC Capillary Glucose 273 H 266 H 304 H Calcium Phosphorus 02/26/17 02/26/17 02/25/17 01:04 00:00 23:59 RBC MCHC RDW Anion Gap BUN 76 H Estimated GFR 39 L POC Capillary Glucose 349 H 418 H Calcium 7.8 L Phosphorus 02/25/17 02/25/17 02/25/17 22:55 21:56 20:57 RBC MCHC RDW Anion Gap BUN Estimated GFR POC Capillary Glucose 458 H 506 H* 560 H* Calcium Phosphorus 02/25/17 02/25/17 02/25/17 18:54 18:30 18:04 RBC MCHC RDW Anion Gap 18 H BUN 85 H Estimated GFR 35 L POC Capillary Glucose > 600 H* > 600 H* Calcium 7.7 L Phosphorus 02/25/17 02/25/17 02/25/17 17:03 15:57 14:59 RBC MCHC RDW Anion Gap BUN Estimated GFR POC Capillary Glucose > 600 H* > 600 H* > 600 H* Calcium Phosphorus Current Medications: Current meds reviewed in EMR. Active Medications Derm Clotrimazole (Lotrimin) 1 applic TP BID [facility] Last Admin: 02/25/17 23:32 Dose: 1 applic Petrolatum/Paraffin/Mineral Oil (Blistex) 1 each TP PRN PRN PRN Reason: Dry and/or chapped lips Endocrine Insulin Human Regular 100 (units/ Sodium Chloride) 100 mls @ 1 mls/hr IV TITRATE PRN; Protocol; 1 UNITS/HR PRN Reason: Hyperglycemia Last Titration: 02/26/17 08:06 Dose: 6 units/hr FEN Sodium Chloride (Sodium Chloride 0.9%) 100 mls @ 25 mls/hr IV PRN PRN PRN Reason: Flush Dextrose (D5w) 1,000 mls @ 250 mls/hr IV .Q4H [facility] Last Admin: 02/26/17 08:53 Dose: 250 mls/hr GI Docusate Sodium (Colace) 100 mg PO BID [facility] Last Admin: 02/26/17 08:07 Dose: Not Given Pantoprazole Sodium (Protonix) 40 mg IV Q24H [facility] Last Admin: 02/25/17 15:15 Dose: 40 mg ID Ceftriaxone Sodium/Dextrose 1 (g/ Premix (D5W) 50 ml) 50 mls @ 100 mls/hr IV Q24H [facility] PRN Acetaminophen (Tylenol) 650 mg PO Q6H PRN PRN Reason: Pain or Temperature > 100.5 F Benzocaine/Menthol (Cepacol) 1 each PO PRN PRN PRN Reason: Sore Throat Bisacodyl (Dulcolax) 10 mg [place] DAILY PRN PRN Reason: Constipation Bisacodyl (Dulcolax) 5 mg PO DAILY PRN PRN Reason: Constipation Magnesium Hydroxide (Milk Of Magnesia) 30 ml PO DAILY PRN PRN Reason: Constipation Ondansetron HCl (Zofran) 4 mg IV Q4H PRN PRN Reason: Nausea/Vomiting Last Admin: 02/25/17 23:55 Dose: 4 mg VTE Enoxaparin Sodium (Lovenox) 40 mg SUB-Q Q24H [facility] - Problems: Assessment/Plan (1) Diabetic hyperosmolar non-ketotic state Status: AcuteAssessment/Plan: Still with hyperosmolar state, ongoing. Plan additional IVF, using NS. Laboratory Tests 02/26/17 02/26/17 02/26/17 05:15 06:03 07:07 Glucose 249 H POC Capillary Glucose 215 H 200 H 02/26/17 02/26/17 08:04 09:04 Glucose POC Capillary Glucose 220 H 234 H (2) UTI (urinary tract infection), bacterial Status: AcuteAssessment/Plan: With bacteremia (GNR) noted. Low BP would suggest possible septic shock, but pt doesn't meet SIRS criteria. Giving 2 L NS, and given Rocephin in ED 02/25 14:00 (will continue) for GNR on blood; UA/cx showed mixed culture. (3) Diabetes type 2, uncontrolled Qualifiers: Diabetes mellitus complication status: with hyperglycemia Diabetes mellitus mcc insulin use: with mcc use Qualifier Code: (E11.65) Type 2 diabetes mellitus with hyperglycemia Status: ChronicAssessment/Plan: Will continue on IV Insulin, hourly checks. With neuropathy, nephropathy, ophthalmopathy. (4) Urinary retention Status: AcuteAssessment/Plan: Patient with UTI, complicated by urinary retention due to neuropathic bladder, and intermittent cath and poor diabetes control. (5) Hypernatremia Status: AcuteAssessment/Plan: Na Corrected qeclqhb=175 (due to marked hyperglycemia), now corrected is 164. Due to hyperosmolar state; sl improved. Continue hydration, encourage oral intake. Recheck this afternoon. (6) Dehydration Status: AcuteAssessment/Plan: Severe dehydration due to hyperosmolar nonketotic syndrome. Plan add'l IVF, and encourage oral intake, NS bolus ordered for today. Recheck this afternoon and in am. (7) Gram-negative bacteremia Status: AcuteAssessment/Plan: Suspect UTI source. Plan U/S and await culture results. VTE Prophylaxis: enoxaparin Disposition: anticipate return to home with family, but will be 2-3 days at least
[2017-02-26] MEDS ORDERED: POTASSIUM CHLORIDE 40 MEQ in D5W 1,000 ML IV SCH (11:00)
--- NOTE | 2017-02-26 13:36 | US ---
RENAL ULTRASOUND HISTORY: Follow-up hydronephrosis. Sonography was performed of the kidneys and bladder. Correlation against CT exam from 01/24/2017. RIGHT RENAL DIMENSIONS: 14.4 x 6.5 x 5.6 cm. LEFT RENAL DIMENSIONS: 9.5 x 8.4 x 5.0 cm. CORTICAL THICKNESS: 10.7 cm on the right, 10.7 cm on the left. RESISTIVE INDICES: 0.65 on the right, 0.62 on the left. FOCAL RENAL LESIONS: No solid or cystic lesions. No shadowing echogenic foci. COLLECTING SYSTEM DILATATION: There is residual moderate pelviectasis and ureteral dilatation on the right, proximal ureter measuring up to 1.4 cm in width, decreased from 2.[address] examination. Debris is noted on the right. Decompression of left-sided collecting system minimal pelviectasis. Residual prominence of proximal ureter measuring 1.3 cm in width compared to 1.[address] examination. PREVOID BLADDER VOLUME: 207 cc. POST VOID BLADDER VOLUME: 102 cc. BLADDER FILLING DEFECTS: Ureteral stent placement, Lawson catheter.. Prominent bladder wall thickening. IMPRESSION: Prominent bladder wall thickening, correlate for cystitis. Lawson catheter in place with interval partial decompression of the collecting systems and proximal ureters. Debris is noted at the right collecting system, pyelitis is possible. Normal resistive indices. Mild to moderate post void residual. Findings discussed with Dr. Liu of the referring clinical service on 02/26/2017 at 1330 hours.
[2017-02-26] MEDS: PANTOPRAZOLE SODIUM 40 MG VIAL IV SCH (14:13)
[2017-02-26] MEDS: ENOXAPARIN SODIUM 40 MG/0.4 ML SYRINGE SUB-Q SCH (14:13)
[2017-02-26] MEDS: CEFTRIAXONE 1 GRAM DUPLEX 1 G in Premix (D5W) 50 ml 1 EACH IV SCH (14:14)
[2017-02-26 15:34] LABS: CALCIUM 7.7 mg/dL (8.6-10.3)
[2017-02-26] MEDS ORDERED: POTASSIUM CHLORIDE 40 MEQ in SODIUM CHLORIDE 0.9% 180 ML IV ONE (15:53)
[2017-02-26] MEDS ORDERED: SODIUM CHLORIDE 0.9% 1,000 ML IV SCH (16:00)
[2017-02-26] MEDS ORDERED: SODIUM CHLOR 0.45%/KCL 20 MEQ 1,000 ML IV SCH (16:30)
[2017-02-26 20:48] LABS: CALCIUM 7.6 mg/dL (8.6-10.3)
[2017-02-27] MEDS ORDERED: D5W 1,000 ML IV SCH ×2 (00:15→08:45)
[2017-02-27] MEDS: INSULIN REGULAR HUMAN (DOSE) 100 UNITS in SODIUM CHLORIDE 0.9% 99 ML IV PRN (00:16)
[2017-02-27] MEDS ORDERED: SODIUM CHLOR 0.45%/KCL 20 MEQ 1,000 ML IV SCH ×2 (00:30→08:45)
[2017-02-27 05:42] LABS: ABSOLUTE NEUTROPHIL COUNT 9.3 K/mm3 (1.8-7.7); BASO % 0.1 % (0.2-1.0); EOS # 0.1 (0.0-0.5); EOS % 0.9 % (0.9-2.9); HEMATOCRIT 25.6 % (32.0-52.0); HEMOGLOBIN 8.1 gm/l (14.0-18.0); IMM NEUT # 0.1 K/mm3 (0-0.2); IMM NEUT% 0.7 % (0-1); LYMPH # 0.7 (1.0-4.8); LYMPH % 6.8 % (15-45); MEAN CELL VOLUME 88.9 fl (80.0-94.0); MEAN CORPUSCULAR HEMOGLOBIN 28.1 pg (27.0-31.0); MEAN CORPUSCULAR HGB CONC 31.6 g/dl (33.0-37.0); MEAN PLATELET VOLUME 12.3 fl (7.4-10.4); MONO # 0.7 (0.0-0.8); NEUT % 85.5 % (43-75); PLATELET COUNT 247 K/mm3 (130-400); RED CELL DISTRIBUTION WIDTH 15.8 % (11.5-14.5)
[2017-02-27 05:58] LABS: ALB/GLOB RATIO 0.5 (>1.0); ALBUMIN 1.9 gm/dL (3.5-5.7); CALCIUM 7.4 mg/dL (8.6-10.3); MAGNESIUM 1.6 mg/dL (1.9-2.7)
[2017-02-27 06:32] LABS: BAND 3 % (0-10); BASOPHIL 0 % (0-1); EOSINOPHIL 0 % (1-3); LYMPHOCYTE 11 % (15-45); MONOCYTE 4 % (4-12); NEUTROPHILS 82 % (43-75); PLATELET ESTIMATE NORMAL (NORMAL); TOTAL CELLS COUNTED 100
[2017-02-27] MEDS: CLOTRIMAZOLE 1% 15 APPLIC/15 G CREAM TP SCH ×2 (09:05→21:42)
[2017-02-27] MEDS: DOCUSATE SODIUM 100 MG CAPSULE PO SCH ×2 (09:05→21:42)
--- NOTE | 2017-02-27 10:37 | PDOC43 ---
- Subjective Chief Complaint: Hyperosmolar state RN reports pt hungry, some general achiness. No new c/o. Good PO intake of liquids. Still on IV insulin at 6 units/hr. Good urinary output, 1300 just this am. This am, he reports feeling better. Does note hands and feet are numb. Hasn't stood or walked yet. RN mentions some loose stools. - Objective Vital Signs Temperature 98.9 F 02/27/17 07:00 Pulse Rate 98 02/27/17 07:00 Respiratory Rate 18 02/27/17 08:00 Blood Pressure 125/77 02/27/17 07:00 O2 Saturation by Pulse Oximetry 98 02/27/17 07:00 Oxygen Delivery Method Room Air Oxygen Flow Rate 0 Vital Signs Last 12 Hours Temp Pulse Resp BP Pulse Ox 02/27/17 08:00 18 02/27/17 07:00 98.9 F 98 18 125/77 98 02/27/17 03:00 98.8 F 86 14 114/70 95 02/26/17 23:00 99.4 F 100 17 102/63 96 Intake and Output 02/25/17 02/26/17 02/27/17 23:59 23:59 23:59 Intake Total 3113 8395.6 4772 Output Total 2801 5275 2650 Balance 312 3120.6 2122 General: Other (pt awake, answers, but slowly. More personality evident today, smiles some.) Lungs: Clear to Auscultation Bilaterally Abdomen: Hypoactive Bowel Sounds (but WNL), Non-Distended, No Tenderness Extremities: Other (extrem now with trace of edema hands and feet. Pt reports some numbness (but not clear how compares to baseline).) Skin: Normal Color (improved.), Other (skin turgor improved.) Neurological: Other (speech slow, some of which may be due to language differences, but improved from yesterday.) Laboratory 02/27/17 05:05 02/27/17 05:05 02/27/17 02/27/17 02/27/17 09:12 08:30 07:09 RBC MCHC RDW BUN Estimated GFR POC Capillary Glucose 273 H 311 H 218 H Serum Osmolality Calcium Magnesium Alkaline Phosphatase Total Protein Albumin Globulin Albumin/Globulin Ratio 02/27/17 02/27/17 02/27/17 06:02 05:09 05:05 RBC 2.88 L MCHC 31.6 L RDW 15.8 H BUN 31 H Estimated GFR 58 L POC Capillary Glucose 143 H 145 H Serum Osmolality Calcium 7.4 L Magnesium 1.6 L Alkaline Phosphatase 280 H Total Protein 5.7 L Albumin 1.9 L Globulin 3.8 H Albumin/Globulin Ratio 0.5 L 02/27/17 02/27/17 02/27/17 04:03 03:09 02:10 RBC MCHC RDW BUN Estimated GFR POC Capillary Glucose 142 H 152 H 181 H Serum Osmolality Calcium Magnesium Alkaline Phosphatase Total Protein Albumin Globulin Albumin/Globulin Ratio 02/27/17 02/27/17 02/26/17 00:55 00:02 23:04 RBC MCHC RDW BUN Estimated GFR POC Capillary Glucose 179 H 188 H 204 H Serum Osmolality Calcium Magnesium Alkaline Phosphatase Total Protein Albumin Globulin Albumin/Globulin Ratio 02/26/17 02/26/17 02/26/17 22:06 20:58 20:15 RBC MCHC RDW BUN 39 H Estimated GFR 54 L POC Capillary Glucose 229 H 197 H Serum Osmolality Calcium 7.6 L Magnesium Alkaline Phosphatase Total Protein Albumin Globulin Albumin/Globulin Ratio 02/26/17 02/26/17 02/26/17 20:12 19:02 18:04 RBC MCHC RDW BUN Estimated GFR POC Capillary Glucose 201 H 195 H 228 H Serum Osmolality Calcium Magnesium Alkaline Phosphatase Total Protein Albumin Globulin Albumin/Globulin Ratio 02/26/17 02/26/17 02/26/17 16:40 15:21 14:55 RBC MCHC RDW BUN 47 H Estimated GFR 54 L POC Capillary Glucose 269 H 244 H Serum Osmolality Calcium 7.7 L Magnesium Alkaline Phosphatase Total Protein Albumin Globulin Albumin/Globulin Ratio 02/26/17 02/26/17 02/26/17 14:10 12:21 11:04 RBC MCHC RDW BUN Estimated GFR POC Capillary Glucose 285 H 195 H 236 H Serum Osmolality Calcium Magnesium Alkaline Phosphatase Total Protein Albumin Globulin Albumin/Globulin Ratio 02/26/17 02/26/17 10:12 06:30 RBC MCHC RDW BUN Estimated GFR POC Capillary Glucose 258 H Serum Osmolality 371 H Calcium Magnesium Alkaline Phosphatase Total Protein Albumin Globulin Albumin/Globulin Ratio Current Medications: Current meds reviewed in EMR. Active Medications Acetaminophen (Tylenol) 650 mg PO Q6H PRN PRN Reason: Pain or Temperature > 100.5 F Benzocaine/Menthol (Cepacol) 1 each PO PRN PRN PRN Reason: Sore Throat Bisacodyl (Dulcolax) 10 mg [place] DAILY PRN PRN Reason: Constipation Bisacodyl (Dulcolax) 5 mg PO DAILY PRN PRN Reason: Constipation Clotrimazole (Lotrimin) 1 applic TP BID [facility] Last Admin: 02/27/17 09:05 Dose: 1 applic Docusate Sodium (Colace) 100 mg PO BID [facility] Last Admin: 02/27/17 09:05 Dose: Not Given Enoxaparin Sodium (Lovenox) 40 mg SUB-Q Q24H [facility] Last Admin: 02/26/17 14:13 Dose: 40 mg Sodium Chloride (Sodium Chloride 0.9%) 100 mls @ 25 mls/hr IV PRN PRN PRN Reason: Flush Insulin Human Regular 100 (units/ Sodium Chloride) 100 mls @ 1 mls/hr IV TITRATE PRN; Protocol; 1 UNITS/HR PRN Reason: Hyperglycemia Last Titration: 02/27/17 07:24 Dose: 6 units/hr Ceftriaxone Sodium/Dextrose 1 (g/ Premix (D5W) 50 ml) 50 mls @ 100 mls/hr IV Q24H [facility] Last Admin: 02/26/17 14:14 Dose: 100 mls/hr Dextrose (D5w) 1,000 mls @ 125 mls/hr IV .Q8H [facility] Stop: 02/27/17 16:44 Last Admin: 02/27/17 09:04 Dose: 125 mls/hr Potassium Chloride/Sodium Chloride (Sodium Chlor 0.45%/Kcl 20 Meq) 1,000 mls @ 125 mls/hr IV .Q8H [facility] Stop: 02/27/17 16:44 Last Admin: 02/27/17 09:04 Dose: 125 mls/hr Magnesium Hydroxide (Milk Of Magnesia) 30 ml PO DAILY PRN PRN Reason: Constipation Ondansetron HCl (Zofran) 4 mg IV Q4H PRN PRN Reason: Nausea/Vomiting Last Admin: 02/25/17 23:55 Dose: 4 mg Pantoprazole Sodium (Protonix) 40 mg IV Q24H [facility] Last Admin: 02/26/17 14:13 Dose: 40 mg Petrolatum/Paraffin/Mineral Oil (Blistex) 1 each TP PRN PRN PRN Reason: Dry and/or chapped lips Last Admin: 02/26/17 21:17 Dose: 1 tube Sodium Chloride (Normal Saline 10ml Flush) 10 ml IV Q8HR [facility] Last Admin: 02/27/17 09:05 Dose: Not Given Sodium Chloride (Normal Saline 10ml Flush) 10 ml IV PRN PRN Last Admin: 02/26/17 21:16 Dose: 10 ml - Problems: Assessment/Plan (1) Diabetic hyperosmolar non-ketotic state Status: AcuteAssessment/Plan: Still with hyperosmolar state, slowly improving. Tx with D5W and 1/2 NS. Continue with PO intake, advance diet. Laboratory Tests 02/27/17 05:05 Sodium 159 H Potassium 3.5 L Chloride 119 H Carbon Dioxide 33 H BUN 31 H Creatinine 1.4 H Estimated GFR 58 L Glucose 180 H Sodium improved, but still fairly high, pt now appearing euvolemic, sl hypervolemic. Will finish current IV fluids, recheck BMP, consider holding after this afternoon. (2) UTI (urinary tract infection), bacterial Status: AcuteAssessment/Plan: With bacteremia (GNR) noted, c/s pending. BP good, good urine output Rocephin started in ED 02/25 14:00, will continue. UA/cx showed mixed culture. (3) Gram-negative bacteremia Status: AcuteAssessment/Plan: Suspect UTI source. U/S was not remarkable, await culture results. On Rocephin. (4) Diabetes type 2, uncontrolled Qualifiers: Diabetes mellitus complication status: with hyperglycemia Diabetes mellitus joint terminal attack controller insulin use: with joint terminal attack controller use Qualifier Code: (E11.65) Type 2 diabetes mellitus with hyperglycemia Status: ChronicAssessment/Plan: On IV Insulin, with hourly checks. With neuropathy, nephropathy, ophthalmopathy. Consider revision to SQ this afternoon. (5) Urinary retention Status: AcuteAssessment/Plan: Patient with UTI, complicated by urinary retention due to neuropathic bladder, and intermittent cath and poor diabetes control. Continue Lawson. (6) Hypernatremia Status: AcuteAssessment/Plan: Na Corrected [id number] (due to marked hyperglycemia), now corrected is 164. Due to hyperosmolar state; sl improved. Continue hydration, encourage oral intake. Recheck this afternoon. (7) Dehydration Status: AcuteAssessment/Plan: Severe dehydration due to hyperosmolar nonketotic syndrome, now clinically repleted with good urine output, Na still high. Recheck this afternoon and in am. VTE Prophylaxis: enoxaparin Disposition: anticipate to Med/surg this afternoon. Ultimately return to home with family, but suspect will be 1-2 days at least Additional Comments: With low Mg and K, attributed to NKHO, plan continue supplement
[2017-02-27] MEDS ORDERED: MAGNESIUM SULFATE 2 G/50 ML 2 G in Premix (Water) 50 ml 1 EACH IV ONE (11:00)
[2017-02-27] MEDS: ENOXAPARIN SODIUM 40 MG/0.4 ML SYRINGE SUB-Q SCH (15:06)
[2017-02-27] MEDS: PANTOPRAZOLE SODIUM 40 MG VIAL IV SCH (15:06)
[2017-02-27] MEDS: CEFTRIAXONE 1 GRAM DUPLEX 1 G in Premix (D5W) 50 ml 1 EACH IV SCH (15:06)
[2017-02-27 15:32] LABS: CALCIUM 6.9 mg/dL (8.6-10.3)
[2017-02-27] MEDS: INSULIN ASPART (DOSE) 100 UNITS/1 ML SUB-Q PRN (21:40)
[2017-02-27] MEDS: INSULIN GLARGINE (DOSE) 100 UNITS/ML UNIT SUB-Q SCH (21:41)
[2017-02-28] MEDS: INSULIN ASPART (DOSE) 100 UNITS/1 ML SUB-Q PRN ×5 (00:12→21:34)
[2017-02-28] MEDS ORDERED: INSULIN REGULAR HUMAN (DOSE) 100 UNITS/1 ML SUB-Q ONE ×2 (00:30→03:00)
[2017-02-28] MEDS ORDERED: INSULIN ASPART (DOSE) 100 UNITS/1 ML SUB-Q ONE (03:00)
[2017-02-28 05:57] LABS: BASO % 0.1 % (0.2-1.0); EOS # 0.2 (0.0-0.5); EOS % 1.8 % (0.9-2.9); HEMATOCRIT 23.2 % (32.0-52.0); HEMOGLOBIN 7.2 gm/l (14.0-18.0); IMM NEUT # 0.1 K/mm3 (0-0.2); IMM NEUT% 0.6 % (0-1); LYMPH # 1.1 (1.0-4.8); LYMPH % 12.2 % (15-45); MEAN CELL VOLUME 89.6 fl (80.0-94.0); MEAN CORPUSCULAR HEMOGLOBIN 27.8 pg (27.0-31.0); MEAN PLATELET VOLUME 13.2 fl (7.4-10.4); MONO # 0.6 (0.0-0.8); MONO % 6.6 % (4-12); NEUT % 78.7 % (43-75); PLATELET COUNT 180 K/mm3 (130-400); RED CELL DISTRIBUTION WIDTH 16.4 % (11.5-14.5)
[2017-02-28 07:09] LABS: ALB/GLOB RATIO 0.5 (>1.0); ALBUMIN 1.8 gm/dL (3.5-5.7); CALCIUM 7.2 mg/dL (8.6-10.3); MAGNESIUM 1.8 mg/dL (1.9-2.7)
[2017-02-28] MEDS: DOCUSATE SODIUM 100 MG CAPSULE PO SCH (09:39)
[2017-02-28] MEDS: CLOTRIMAZOLE 1% 15 APPLIC/15 G CREAM TP SCH ×2 (09:39→21:36)
[2017-02-28] MEDS: PANTOPRAZOLE 40 MG TABLET DR PO SCH (09:39)
[2017-02-28] MEDS: INSULIN GLARGINE (DOSE) 100 UNITS/ML UNIT SUB-Q SCH (10:07)
[2017-02-28] MEDS ORDERED: FUROSEMIDE 40 MG/4 ML VIAL IV ONE (10:50)
--- NOTE | 2017-02-28 11:08 | PDOC43 ---
- Subjective Chief Complaint: Hyperosmolar, nonketotic diabetic crisis, Type 2 DM with insulin dependence, bacteremia with sepsis Subjective: Reports Tolerating Diet Well, Reports Adequate Oral Intake, Reports Bowel Movement (loose but infrequent), Reports Fever (Tmax 100.9), Reports Other (Quijano in place, chronic self catheterization at home), Denies Cough, Denies Abdominal Pain, Denies Nausea, Denies Vomiting - Objective Vital Signs Temperature 99.0 F 02/28/17 07:06 Pulse Rate 90 02/28/17 07:06 Respiratory Rate 16 02/28/17 07:06 Blood Pressure 110/78 02/28/17 07:06 O2 Saturation by Pulse Oximetry 94 02/28/17 07:06 Oxygen Delivery Method Room Air Oxygen Flow Rate 0 Intake and Output 02/26/17 02/27/17 02/28/17 23:59 23:59 23:59 Intake Total 8395.6 7930 1190 Output Total 5275 6550 1350 Balance 3120.6 1380 -160 Tubes/Drains Output: Quijano General: Alert, Oriented x3, Cooperative HEENT: Atraumatic, PERRLA, Mucous membr. moist/pink, Other (poor dentition, caries, retained roots) Lungs: Clear to Auscultation Bilaterally, Normal Air Movement, Other (No basilar crackles), No Diminished at Bases Cardiovascular: Regular Rate and Rhythm, Murmur (FERNANDO 2/6) Abdomen: Soft, Normal Bowel Sounds, No Tenderness, No Non-Distended Extremities: Normal Pulses, No Cyanosis, No Edema Skin: Warm, Intact, Other (clammy) Neurological: Other (left EOMI altered) Psych/Mental Status: Flat Affect, Other (slowed speech) Laboratory 02/28/17 05:25 02/28/17 05:25 02/28/17 02/28/17 02/28/17 09:29 05:25 05:14 RBC 2.59 L MCHC 31.0 L RDW 16.4 H BUN 29 H POC Capillary Glucose 285 H 272 H Calcium 7.2 L Magnesium 1.8 L Alkaline Phosphatase 273 H Total Protein 5.4 L Albumin 1.8 L Globulin 3.6 H Albumin/Globulin Ratio 0.5 L 02/28/17 02/27/17 02/27/17 02:26 23:55 21:30 RBC MCHC RDW BUN POC Capillary Glucose 334 H 388 H 437 H Calcium Magnesium Alkaline Phosphatase Total Protein Albumin Globulin Albumin/Globulin Ratio 02/27/17 02/27/17 02/27/17 17:37 16:25 14:22 RBC MCHC RDW BUN POC Capillary Glucose 200 H 211 H 235 H Calcium Magnesium Alkaline Phosphatase Total Protein Albumin Globulin Albumin/Globulin Ratio 02/27/17 02/27/17 02/27/17 13:05 12:10 11:16 RBC MCHC RDW BUN POC Capillary Glucose 191 H 237 H Calcium 6.9 L Magnesium Alkaline Phosphatase Total Protein Albumin Globulin Albumin/Globulin Ratio Current Medications: Current meds reviewed in EMR. - Problems: Assessment/Plan (1) Diabetic hyperosmolar non-ketotic state Status: AcuteAssessment/Plan: Transitioned to long acting, short acting regimen yesterday with persistent hyperglycemia, improving electrolytes. Denies noncompliance or difficulty getting meds and states at home he has FSG of 112-140's last week before he got sick. He confirmed home regimen is 45U Lantus at night and 7-10U with meals. We will work back towards those doses while we continue to correct underlying electrolyte imbalance, infection and acute on chronic anemia. (2) Gram-negative bacteremia Status: AcuteAssessment/Plan: GN bacilla. ID and sensitivity pending. Continue empiric Rocephin. 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 Continue quijano until ready for discharge. (4) Hyperosmolality and hypernatremia Status: AcuteAssessment/Plan: Needs additional free water so will restart D51/2NS and monitor NA levels. Encourage PO water. 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 May have component of chronic GI blood loss but also nutritional deficits. Will check B12/Folate/ Iron studies and look for replaceable deficits while inpatient. Hemoccult stools andif positive, outpatient endoscopy. NO visible blood loss. VTE Prophylaxis: enoxaparin, ICP Disposition: Discharge to home in several days, anticipate possibly Friday, more likely Friday or Friday even Additional Comments: FULL CODE
[2017-02-28] MEDS: D5 1/2NS with 40mEq KCL 1,000 ML IV SCH (11:15)
[2017-02-28 12:21] LABS: IRON 24 ug/dL (50-212); TOTAL IRON BINDING CAPACITY 151 ug/dL (261-478); TRANSFERRIN 108 mg/dL (203-362)
[2017-02-28 12:45] LABS: FOLIC ACID 9.3 ng/mL (>5.9)
[2017-02-28] MEDS: CEFTRIAXONE 1 GRAM DUPLEX 1 G in Premix (D5W) 50 ml 1 EACH IV SCH (13:54)
[2017-02-28] MEDS: ENOXAPARIN SODIUM 40 MG/0.4 ML SYRINGE SUB-Q SCH (16:39)
--- NOTE | 2017-02-28 17:05 | US ---
ABDOMINAL-LIMITED HISTORY: Evaluate for hepatosplenomegaly. COMPARISONS: None. FINDINGS: Limited ultrasonography of the abdomen was performed demonstrating a homogeneous appearance of the visualized liver. The liver measures 20.2 cm in AP diameter at the midclavicular line. The spleen measures 10.4 cm in AP diameter with a normal splenic volume of 190 mL. There appears to be evidence of a left pleural effusion. Incidental note is made of bilateral renal pyelocaliectasis as seen on recent renal ultrasound examination. IMPRESSION: 1. Findings suggesting hepatomegaly. 2. Normal splenic size. 3. Reidentification of bilateral renal hydronephrosis, as seen on recent renal ultrasound examination of 02/26/2017.
[2017-02-28 17:27] LABS: FIBRINOGEN > 450 mg/dL (210-360); INR 1.07; PARTIAL THROMBOPLASTIN TIME 26.7 SECONDS (24.5-33.0); PROTHROMBIN TIME 11.2 SECONDS (9.3-11.4)
[2017-02-28 17:50] LABS: FERRITIN > 1500.0 ng/mL (23.9-336.2)
[2017-02-28 18:26] LABS: D-DIMER 7.52 mg/L FEU (0.20-0.50)
[2017-02-28] MEDS ORDERED: INSULIN GLARGINE (DOSE) 100 UNITS/ML UNIT SUB-Q SCH (21:00)
[2017-03-01] MEDS: D5 1/2NS with 40mEq KCL 1,000 ML IV SCH ×2 (00:59→14:04)
[2017-03-01 06:28] LABS: ABSOLUTE NEUTROPHIL COUNT 5.5 K/mm3 (1.8-7.7); BASO % 0.1 % (0.2-1.0); EOS # 0.1 (0.0-0.5); EOS % 1.8 % (0.9-2.9); HEMATOCRIT 23.7 % (32.0-52.0); HEMOGLOBIN 7.4 gm/l (14.0-18.0); IMM NEUT% 0.6 % (0-1); LYMPH % 14.2 % (15-45); MEAN CELL VOLUME 87.8 fl (80.0-94.0); MEAN CORPUSCULAR HEMOGLOBIN 27.4 pg (27.0-31.0); MEAN CORPUSCULAR HGB CONC 31.2 g/dl (33.0-37.0); MEAN PLATELET VOLUME 12.8 fl (7.4-10.4); MONO # 0.5 (0.0-0.8); MONO % 7.2 % (4-12); NEUT % 76.1 % (43-75); PLATELET COUNT 160 K/mm3 (130-400); RED CELL DISTRIBUTION WIDTH 15.9 % (11.5-14.5)
[2017-03-01 08:24] LABS: ALB/GLOB RATIO 0.5 (>1.0); ALBUMIN 1.8 gm/dL (3.5-5.7); CALCIUM 7.1 mg/dL (8.6-10.3)
[2017-03-01] MEDS: INSULIN ASPART (DOSE) 100 UNITS/1 ML SUB-Q PRN ×4 (08:52→21:00)
[2017-03-01] MEDS: PANTOPRAZOLE 40 MG TABLET DR PO SCH (08:54)
[2017-03-01] MEDS: CLOTRIMAZOLE 1% 15 APPLIC/15 G CREAM TP SCH ×2 (08:55→21:07)
--- NOTE | 2017-03-01 10:14 | PDOC43 ---
- Subjective Chief Complaint: Hyperosmolar, nonketotic diabetic crisis, Type 2 DM with insulin dependence, bacteremia with sepsis No complaints. Reports that he is eating better. - Objective Vital Signs Temperature 98.6 F 03/01/17 08:00 Pulse Rate 96 03/01/17 08:00 Respiratory Rate 16 03/01/17 08:15 Blood Pressure 111/75 03/01/17 08:00 O2 Saturation by Pulse Oximetry 97 03/01/17 08:00 Oxygen Delivery Method Room Air Oxygen Flow Rate 0 Intake and Output 02/28/17 03/01/17 03/02/17 06:59 06:59 06:59 Intake Total 5727 5611 550 Output Total 6550 7325 300 Balance -823 -5270 250 General: Alert, Cooperative, No Acute Distress HEENT: Mucous membr. moist/pink Lungs: Clear to Auscultation Bilaterally Cardiovascular: Regular Rate and Rhythm Abdomen: Soft, Normal Bowel Sounds, No Tenderness, No Masses Extremities: Pulses Diminished but Palpable, No Edema Skin: Normal Color Neurological: Normal Speech Psych/Mental Status: Depressed Laboratory 03/01/17 05:30 03/01/17 05:30 03/01/17 03/01/17 03/01/17 08:02 05:30 05:24 RBC 2.70 L MCHC 31.2 L RDW 15.9 H Fibrinogen D-Dimer BUN 26 H POC Capillary Glucose 262 H 257 H Calcium 7.1 L Magnesium Iron TIBC Transferrin Transferrin % Sat Ferritin Alkaline Phosphatase 350 H Total Protein 5.7 L Albumin 1.8 L Globulin 3.9 H Albumin/Globulin Ratio 0.5 L Vitamin B12 02/28/17 02/28/17 02/28/17 21:27 17:16 16:10 RBC MCHC RDW Fibrinogen > 450 H D-Dimer 7.52 H BUN POC Capillary Glucose 322 H 416 H Calcium Magnesium Iron TIBC Transferrin Transferrin % Sat Ferritin Alkaline Phosphatase Total Protein Albumin Globulin Albumin/Globulin Ratio Vitamin B12 02/28/17 02/28/17 12:56 11:10 RBC MCHC RDW Fibrinogen D-Dimer BUN POC Capillary Glucose 357 H Calcium Magnesium 1.7 L Iron 24 L TIBC 151 L Transferrin 108 L Transferrin % Sat 16 L Ferritin > 1500.0 H Alkaline Phosphatase Total Protein Albumin Globulin Albumin/Globulin Ratio Vitamin B12 1271 H Current Medications: Current meds reviewed in EMR. - Problems: Assessment/Plan (1) Diabetic hyperosmolar non-ketotic state Status: AcuteAssessment/Plan: With severe dehydration at the time of admit. Sodium continues to improve, resume usual insulin doses. (2) Gram-negative bacteremia Status: AcuteAssessment/Plan: with Klebsiella pneumoniae sensitive to ceftriaxone. Low grade temp overnight, continue IV abx treatment. (3) UTI (urinary tract infection), bacterial Status: AcuteAssessment/Plan: With bacteremia as above BP good, good urine output Rocephin started in ED 02/25 14:00, will continue. UA/cx showed mixed culture. (4) Acute kidney injury Status: AcuteAssessment/Plan: due to HoNK and dehydration, improving but not back to baseline. (5) Depression Qualifiers: Depression Type: major depressive disorder Major depression recurrence : recurrent Active/Remission status: currently active Psychotic features : without psychotic features Status: ChronicAssessment/Plan: Start sertraline at bedtime. 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 Resume usual insulin doses (7) Normocytic normochromic anemia Status: ChronicAssessment/Plan: Acute on chronic normocytic, normochromic anemia. May have component of chronic GI blood loss but also nutritional deficits. Iron deficiency noted. Hemocult pending, if positive, outpatient endoscopy. NO visible blood loss. 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 Continue quijano until ready for discharge. (9) Diabetic gastroparesis associated with type 2 diabetes mellitus Status: ChronicAssessment/Plan: May be contributing to poor oral intake, start metocloprimide. VTE Prophylaxis: enoxaparin, ICP Disposition: Discharge to home in several days, anticipate possibly Friday, more likely Friday or Friday even Additional Comments: FULL CODE
[2017-03-01] MEDS ORDERED: INSULIN REGULAR HUMAN (DOSE) 100 UNITS/1 ML SUB-Q SCH (11:00)
[2017-03-01] MEDS: ASCORBIC ACID 250 MG TABLET PO SCH (12:18)
[2017-03-01] MEDS: METOCLOPRAMIDE HCL 5 MG TABLET PO SCH ×3 (12:18→20:42)
[2017-03-01] MEDS: FERROUS SULFATE (65 Fe) 325 MG TABLET PO SCH (12:18)
[2017-03-01] MEDS: INSULIN ASPART (DOSE) 100 UNITS/1 ML SUB-Q SCH ×2 (13:11→18:04)
[2017-03-01] MEDS ORDERED: PUMP TUBING ONE (13:57)
[2017-03-01] MEDS: CEFTRIAXONE 1 GRAM DUPLEX 1 G in Premix (D5W) 50 ml 1 EACH IV SCH (14:01)
[2017-03-01] MEDS: ENOXAPARIN SODIUM 40 MG/0.4 ML SYRINGE SUB-Q SCH (15:11)
[2017-03-01] MEDS: LOVASTATIN 20 MG TABLET PO SCH (20:42)
[2017-03-01] MEDS: SERTRALINE HCL 50 MG TABLET PO SCH (20:42)
[2017-03-01] MEDS: INSULIN GLARGINE (DOSE) 100 UNITS/ML UNIT SUB-Q SCH (20:59)
[2017-03-02] MEDS: D5 1/2NS with 40mEq KCL 1,000 ML IV SCH (03:53)
[2017-03-02 06:30] LABS: HEMATOCRIT 22.8 % (32.0-52.0); HEMOGLOBIN 7.1 gm/l (14.0-18.0); MEAN CELL VOLUME 87.7 fl (80.0-94.0); MEAN CORPUSCULAR HEMOGLOBIN 27.3 pg (27.0-31.0); MEAN CORPUSCULAR HGB CONC 31.1 g/dl (33.0-37.0); RED CELL DISTRIBUTION WIDTH 15.8 % (11.5-14.5)
[2017-03-02] MEDS: METOCLOPRAMIDE HCL 5 MG TABLET PO SCH ×4 (07:45→21:25)
[2017-03-02] MEDS: INSULIN ASPART (DOSE) 100 UNITS/1 ML SUB-Q PRN ×3 (08:11→17:40)
[2017-03-02] MEDS: INSULIN ASPART (DOSE) 100 UNITS/1 ML SUB-Q SCH ×3 (08:11→17:40)
[2017-03-02] MEDS: PANTOPRAZOLE 40 MG TABLET DR PO SCH (09:39)
[2017-03-02] MEDS: FERROUS SULFATE (65 Fe) 325 MG TABLET PO SCH (09:39)
[2017-03-02] MEDS: ASCORBIC ACID 250 MG TABLET PO SCH (09:39)
[2017-03-02] MEDS: CLOTRIMAZOLE 1% 15 APPLIC/15 G CREAM TP SCH ×2 (09:45→21:26)
[2017-03-02] MEDS ORDERED: MAGNESIUM SULFATE 1 G/100 ML 1 G in PREMIX BAG 1 EACH IV SCH (12:00)
--- NOTE | 2017-03-02 12:10 | PDOC43 ---
- Subjective Chief Complaint: Hyperosmolar, nonketotic diabetic crisis, Type 2 DM with insulin dependence, bacteremia with sepsis Subjective: Reports Tolerating Diet Well, Reports Adequate Oral Intake, Reports Bowel Movement, Reports Fever (tmax 100.4), Denies Abdominal Pain, Denies Nausea , Denies Vomiting - Objective Vital Signs Temperature 99.8 F 03/02/17 07:23 Pulse Rate 99 03/02/17 07:23 Respiratory Rate 16 03/02/17 07:45 Blood Pressure 110/74 03/02/17 07:23 O2 Saturation by Pulse Oximetry 97 03/02/17 07:23 Oxygen Delivery Method Room Air Oxygen Flow Rate 0 Intake and Output 02/28/17 03/01/17 03/02/17 23:59 23:59 23:59 Intake Total 4662 5983 1711 Output Total 7040 5000 3000 Balance -2413 983 -1289 General: Alert, Oriented x3, Other (chronically ill appearing) HEENT: Atraumatic Lungs: Clear to Auscultation Bilaterally Cardiovascular: Regular Rate and Rhythm Abdomen: Soft, Non-Distended, No Tenderness Extremities: No Cyanosis, No Edema Neurological: Normal Speech Psych/Mental Status: Flat Affect Laboratory 03/02/17 05:30 03/02/17 05:30 03/02/17 03/02/17 03/01/17 07:44 05:30 20:48 RBC 2.60 L MCHC 31.1 L RDW 15.8 H POC Capillary Glucose 231 H 242 H Calcium 7.0 L 03/01/17 03/01/17 17:45 12:16 RBC MCHC RDW POC Capillary Glucose 278 H 217 H Calcium Current Medications: Current meds reviewed in EMR. - Problems: Assessment/Plan (1) Diabetic hyperosmolar non-ketotic state Status: AcuteAssessment/Plan: complicated by hypovolemia/ severe dehydration at the time of admit. Labs improving expectedly. DC IVF's and encourage PO intake. Eval FSG off D5 and on home insulin. Precipitating factor appears to have been Klebsiella bacteremia, probably from complicated UTI given self catheterization and chronic colonization but will obtain CXR to r/o CAP. (2) Gram-negative bacteremia Status: AcuteAssessment/Plan: with Klebsiella pneumoniae sensitive to FQ's and Cephalosporins. Will transition to Cipro 500mg BID for total of 14day course of antibiotic. Likely urinary source, spontaneous or pulmonary. Will get CXR to evaluate for infiltrate. (3) Urinary retention Status: ChronicAssessment/Plan: Chronic colonization of urine with chronic neurogenic bladder and self cath at home. Continue quijano until ready for discharge. (4) Hyperosmolality and hypernatremia Status: ResolvedAssessment/Plan: Resolved with IVF's. DC D51/2NS and monitor NA levels. Encourage PO water. 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 Resumed usual insulin doses yesterday. Stop D5 and water (6) Normocytic normochromic anemia Status: ChronicAssessment/Plan: Acute on chronic normocytic, normochromic anemia. May have component of chronic GI blood loss but hemoccult is negative. More likley chronic nutritional deficits. Adequate folate and B12, function iron deficiency noted with elevated ferritin due to acute phase reaction and underlying anemia of chronic disease with acute dilutional component during this admission. NO visible blood loss. VTE Prophylaxis: enoxaparin, ICP Disposition: Discharge to home likely Friday if am labs okay and no acute changes Additional Comments: FULL CODE
--- NOTE | 2017-03-02 13:35 | RAD ---
Name: SAMMI GRIFFITHS Exam: Two-view chest Comparison: 01/24/2017 Clinical history: Bacteremia Findings: 2 views of the chest are submitted. Heart mediastinum and hilar structures normal. There is mild left basilar pneumonia. There is no failure, infiltrate, pleural effusion or pneumothorax. Costochondral calcification is identified. Impression: Mild left basilar pneumonia new from the prior
[2017-03-02] MEDS ORDERED: LOPERAMIDE HCL 2 MG CAPSULE PO ONE (13:41)
[2017-03-02] MEDS ORDERED: LOPERAMIDE HCL 2 MG CAPSULE PO PRN (13:41)
[2017-03-02] MEDS: ONDANSETRON 4 MG/2ML 2 ML VIAL IV PRN (13:51)
[2017-03-02] MEDS: CIPROFLOXACIN 500 MG TABLET PO SCH ×2 (13:52→21:24)
[2017-03-02] MEDS ORDERED: MAGNESIUM SULFATE 2 G/50 ML 2 G in Premix (Water) 50 ml 1 EACH IV ONE (14:30)
[2017-03-02] MEDS: ENOXAPARIN SODIUM 40 MG/0.4 ML SYRINGE SUB-Q SCH (14:59)
[2017-03-02] MEDS: INSULIN GLARGINE (DOSE) 100 UNITS/ML UNIT SUB-Q SCH (21:24)
[2017-03-02] MEDS: SERTRALINE HCL 50 MG TABLET PO SCH (21:25)
[2017-03-02] MEDS: LOVASTATIN 20 MG TABLET PO SCH (21:25)
[2017-03-03 06:33] LABS: ABSOLUTE NEUTROPHIL COUNT 5.6 K/mm3 (1.8-7.7); BASO % 0.1 % (0.2-1.0); EOS # 0.1 (0.0-0.5); EOS % 0.8 % (0.9-2.9); HEMATOCRIT 21.7 % (32.0-52.0); HEMOGLOBIN 6.8 gm/l (14.0-18.0); IMM NEUT # 0.1 K/mm3 (0-0.2); IMM NEUT% 0.8 % (0-1); LYMPH # 1.2 (1.0-4.8); LYMPH % 15.6 % (15-45); MEAN CELL VOLUME 89.3 fl (80.0-94.0); MEAN CORPUSCULAR HGB CONC 31.3 g/dl (33.0-37.0); MEAN PLATELET VOLUME 12.2 fl (7.4-10.4); MONO # 0.7 (0.0-0.8); NEUT % 73.7 % (43-75); PLATELET COUNT 184 K/mm3 (130-400); RED CELL DISTRIBUTION WIDTH 15.9 % (11.5-14.5)
[2017-03-03 07:00] LABS: ALB/GLOB RATIO 0.5 (>1.0); CALCIUM 7.6 mg/dL (8.6-10.3)
[2017-03-03 07:45] VITALS: BP 117/72
[2017-03-03] MEDS: INSULIN ASPART (DOSE) 100 UNITS/1 ML SUB-Q SCH ×2 (07:59→12:02)
[2017-03-03] MEDS: INSULIN ASPART (DOSE) 100 UNITS/1 ML SUB-Q PRN ×2 (07:59→12:03)
[2017-03-03] MEDS: METOCLOPRAMIDE HCL 5 MG TABLET PO SCH ×2 (08:00→11:26)
[2017-03-03] MEDS: ONDANSETRON 4 MG/2ML 2 ML VIAL IV PRN (08:00)
[2017-03-03 08:13] LABS: ANISOCYTOSIS 1+; HYPOCHROMIA 2+; PLATELET ESTIMATE NORMAL (NORMAL)
[2017-03-03] MEDS: CIPROFLOXACIN 500 MG TABLET PO SCH (09:01)
[2017-03-03] MEDS: FERROUS SULFATE (65 Fe) 325 MG TABLET PO SCH (09:01)
[2017-03-03] MEDS: CLOTRIMAZOLE 1% 15 APPLIC/15 G CREAM TP SCH (09:01)
[2017-03-03] MEDS: PANTOPRAZOLE 40 MG TABLET DR PO SCH (09:02)
[2017-03-03] MEDS: ASCORBIC ACID 250 MG TABLET PO SCH (09:02)
--- NOTE | 2017-03-03 15:06 | DS ---
SAMMI MURRAY [id number] DATE OF ADMISSION: February 25, 2017 DATE OF DISCHARGE: March 03, 2017 DISCHARGE DIAGNOSES: Diabetic hyperosmolar nonketotic state with acute kidney injury. OTHER DIAGNOSES: Include: 1. Gram negative bacteremia due to a urinary tract infection caused by Klebsiella pneumoniae. 2. Community acquired left lower lobe pneumonia organism unknown, presumably bacterial. 3. Chronic neurogenic bladder with chronic urinary retention. 4. Diabetic gastroparesis with chronic nausea. 5. Suspected acute on chronic depression. 6. Iron deficiency anemia. 7. Nausea and vomiting. 8. Yeast balanitis. 9. Tinea pedis. SUMMARY OF ADMISSION AND HOSPITAL COURSE: The patient is a 31-year-old male with medical problems as listed above who presented with marked hyperglycemia and altered mental status. He had limited workup in the emergency department without any initial diagnostic imaging studies. He was found to be markedly hyperglycemic with a serum glucose of 1209, creatinine elevated at 2.3, and mild leukocytosis with a white count of 14.9. Initial hemoglobin was 10.2. He had glucosuria and bacteruria but minimal pyuria. He received a dose of Rocephin in the emergency department. Urine and blood were cultured. He was referred to the hospitalist service for admission. He was treated in the intermediate care unit on an insulin drip. He was given isotonic fluids and developed marked hypernatremia. Subsequently slowly corrected with hypotonic fluid replacement. He initially had nausea and vomiting and lower abdominal pain. His urine culture did eventually grow Klebsiella pneumoniae. Within 48 hours, his blood cultures were also growing Klebsiella pneumoniae. He was treated with Rocephin during his stay and remained afebrile. He did get a followup chest x-ray performed on March 02, 2017 showing a minimal left basilar pneumonia compared to a previous x-ray done on January 24, 2017. This was felt to be present on admission. He never had any respiratory symptoms during his stay. He had an abdominal ultrasound done also on February 28, 2017 showing mildly enlarged liver but no other acute findings. He had a renal ultrasound done on February 26, 2017 with some evidence of bladder wall thickening consistent with cystitis. After his electrolytes disturbances were corrected, his diet was advanced and he was noted to have some postprandial nausea which was managed with Reglan and felt to be due to diabetic gastroparesis. Over the course of his hospitalization, he was aggressively hydrated and subsequently had progressive drop in his hemoglobin down from 10.2 to 6.8 on the day of discharge. He had no evidence of acute gastrointestinal blood loss, and hemoccult testing of the stool was reportedly negative. He did undergo iron, B12, and folate levels. Laboratory studies were consistent with an iron deficiency with a total serum iron of 24 and a transferrin percent saturation of 16%. B12 was over 1200. Folic acid was 9.3. During the patient's stay he was noted to have a papulosquamous rash on his feet consistent tinea pedis and inflamed exudative rash on the foreskin and tip of the penis consistent with yeast balanitis. Both were managed with clotrimazole cream. PHYSICAL EXAM: VITAL SIGNS: At discharge the patient's vital signs showed a temperature of 100.0, pulse 99, blood pressure 117/72, respirations 16, oxygen saturation 97% on room air. Body mass index 20.3. Weight is 65.9 kilograms. GENERAL: This is an male in no acute distress. HEENT: Is unremarkable. NECK: Supple without lymphadenopathy or thyromegaly. LUNGS: Are clear to auscultation bilaterally. CARDIOVASCULAR: Exam reveals a regular rate and rhythm without a murmur. ABDOMEN: Is soft, nontender, nondistended with positive bowel sounds. EXTREMITIES: Show no peripheral edema. LABORATORY STUDIES: On the day of discharge, CBC showed a white count of 7.6, hemoglobin of 6.8, and a platelet count of 184,000. Chemistry profile showed a sodium 143, potassium 4.4, carbon dioxide 27, BUN 24, creatinine 1.1, glucose 151. DISPOSITION: Home. DISCHARGE CONDITION: Good. FOLLOWUP: Followup appointment has been scheduled with Dr. Romero Plaza on March 05, 2017 at 10:30 a.m. Consider outpatient workup of the patient's iron deficiency anemia. DISCHARGE MEDICATIONS: Include: 1. Zofran 4 to 8 mg sublingual every four hours as needed for nausea or vomiting, 20 pills with one refill. 2. Reglan 5 mg before meals and at bedtime, 120 pills with one refill. 3. Iron sulfate 325 mg daily, 30 pills with one refill. 4. Doxycycline 100 mg twice daily for ten days, 20 pills with no refill. 5. Clotrimazole 1% cream applied topically to the rash on the feet and on the tip of the penis twice a day for up to six weeks. 6. Ciprofloxacin 500 mg twice daily for 14 days. 7. Vitamin C 250 mg daily to be taken with the iron. 8. He is prescribed Zoloft 50 mg at bedtime for suspected depression. 9. He is going to resume his previous home medications except I am going to have him take his Lasix 40 mg daily as needed for edema, not scheduled. 10. Potassium chloride 10 mEq daily on the days he takes the Lasix. 11. He will resume Lantus insulin 45 units at bedtime. 12. Novolin insulin 10 units before meals and correction scale as needed. 13. He will continue with Mevacor 20 mg at bedtime. 14. Metformin 1000 mg twice daily. 15. Ranitidine 150 mg twice daily. Cc: Romero Plaza M.D.
[2017-03-03 15:42] LABS: FERRITIN 661.7 ng/mL (23.9-336.2)
[2017-03-03 15:46] LABS: FOLIC ACID 10.9 ng/mL (>5.9)
[2017-03-05 08:02] LABS: IRON 16 ug/dL (50-212); TOTAL IRON BINDING CAPACITY 202 ug/dL (261-478); TRANSFERRIN 144 mg/dL (203-362)
== END 2017-03-03 15:23 | disposition home or self-care (01) | DRG 637 ==
LOC: ED 11:04 → ICU 14:24 → MS 03-01 19:12
PROVIDERS: ADMIT Family Medicine; ATTEND Family Medicine
DX: E11.00 Type 2 diabetes mellitus with hyperosmolarity without nonketotic hyperglycemic-hyperosmolar coma (NKHHC) (principal); G93.41 Metabolic encephalopathy; J15.9 Unspecified bacterial pneumonia; N39.0 Urinary tract infection, site not specified; E87.1 Hypo-osmolality and hyponatremia; E46 Unspecified protein-calorie malnutrition; R73.9 Hyperglycemia, unspecified; I95.9 Hypotension, unspecified; D64.9 Anemia, unspecified; N18.9 Chronic kidney disease, unspecified; E11.40 Type 2 diabetes mellitus with diabetic neuropathy, unspecified; B96.89 Other specified bacterial agents as the cause of diseases classified elsewhere; R33.9 Retention of urine, unspecified; E86.0 Dehydration; R82.71 Bacteriuria; E11.649 Type 2 diabetes mellitus with hypoglycemia without coma; Z79.4 Long term (current) use of insulin; Z91.14 Patient's other noncompliance with medication regimen; F32.9 Major depressive disorder, single episode, unspecified; N31.9 Neuromuscular dysfunction of bladder, unspecified; B96.1 Klebsiella pneumoniae [K. pneumoniae] as the cause of diseases classified elsewhere; E11.43 Type 2 diabetes mellitus with diabetic autonomic (poly)neuropathy; K31.84 Gastroparesis

== ENCOUNTER 2017-03-06 17:34 | Emergency (ER) | payer OTHER ==
[2017-03-06] MEDS ORDERED: LIDOCAINE 2% UROJECT 10 ML ONE (18:16)
[2017-03-06 18:43] LABS: BASO % 0.1 % (0.2-1.0); EOS % 0.4 % (0.9-2.9); HEMATOCRIT 22.9 % (32.0-52.0); HEMOGLOBIN 7.1 gm/l (14.0-18.0); IMM NEUT% 0.4 % (0-1); LYMPH % 14.6 % (15-45); MEAN CELL VOLUME 88.4 fl (80.0-94.0); MEAN CORPUSCULAR HEMOGLOBIN 27.4 pg (27.0-31.0); MEAN PLATELET VOLUME 11.1 fl (7.4-10.4); MONO # 0.8 (0.0-0.8); MONO % 11.1 % (4-12); NEUT % 73.4 % (43-75); PLATELET COUNT 434 K/mm3 (130-400)
[2017-03-06 18:54] LABS: URINE BILIRUBIN NEGATIVE (NEGATIVE); URINE BLOOD TRACE (NEGATIVE); URINE GLUCOSE (UA) NEGATIVE (NEGATIVE); URINE LEUKOCYTE ESTERASE 2+ (NEGATIVE); URINE NITRITE NEGATIVE (NEGATIVE); URINE PROTEIN NEGATIVE (NEGATIVE); URINE UROBILINOGEN NORMAL (0-1 mg/dl)
[2017-03-06 19:01] LABS: ALB/GLOB RATIO 0.5 (>1.0); ALBUMIN 2.1 gm/dL (3.5-5.7); CALCIUM 7.7 mg/dL (8.6-10.3)
[2017-03-06 19:03] LABS: URINE APPEARANCE CLEAR; URINE COLOR YELLOW
[2017-03-06 19:05] LABS: URINE EPITHELIAL CELLS 0 /hpf; URINE WBC 15-20 /hpf
[2017-03-06 19:06] LABS: URINE BACTERIA 1+
[2017-03-06 21:40] LABS: PLATELET ESTIMATE INCREASED (NORMAL)
== END 2017-03-06 20:15 | disposition home or self-care (01) ==
LOC: ED 17:34
DX: R33.9 Retention of urine, unspecified (principal); D64.9 Anemia, unspecified; E10.9 Type 1 diabetes mellitus without complications; E78.5 Hyperlipidemia, unspecified; E78.00 Pure hypercholesterolemia, unspecified; I10 Essential (primary) hypertension; Z79.4 Long term (current) use of insulin